=== PATIENT | male | born 1960 | race Hispanic/Latino ===

== ENCOUNTER 2021-04-07 14:05 | Inpatient (IN) | payer SELFPAY ==
[2021-04-07] MEDS ORDERED: ACETAMINOPHEN 325 MG TABLET ONE (14:45)
--- NOTE | 2021-04-07 15:16 | RAD REPORT ---
EXAM DESCRIPTION: CT - Head Brain Wo Cont - 04/07/2021 2:54 pm CLINICAL HISTORY: WEAKNESS, headache, right-sided numbness COMPARISON: No comparisons TECHNIQUE: Axial 5 mm thick images of the head were obtained without IV contrast. All CT scans are performed using dose optimization technique as appropriate and may include automated exposure control or mA/KV adjustment according to patient size. FINDINGS: No intracranial hemorrhage, mass, edema or shift of mid-line structures. No acute cortical based infarction identified. No cortical edema or sulcal effacement. Diminished attenuation in the r ight parietal white matter is probably old CVA. Ischemic change in this region would not generate rig ht-side extremity symptoms. Patient has areas of diminished attenuation in the each basal ganglia as well is in the left thalamus. Chronic ischemic changes are scattered in the cerebral white matter. At rophy changes are minimal. No abnormal extra-axial fluid collections. Ventricles are normal. Mastoid air cells and visualized portions of the paranasal sinuses are clear. No acute bony findings. IMPRESSION: No hemorrhage is identified. No mass or edema Multiple focal areas of diminished attenuation are present in the bilateral basal ganglia, left thala mus and right parietal white matter. These focal changes are superimposed on a mild diffuse chronic i schemic pattern. Acute nonhemorrhagic CVA changes could be masked in this setting. Follow-up MR imaging could be perfo rmed if there are ongoing concerns for acute ischemia.
[2021-04-07 15:39] LABS: Protime INR 1.15
[2021-04-07] MEDS ORDERED: ASPIRIN 81 MG CHEWABLE TABLET ONE (15:39)
[2021-04-07] MEDS ORDERED: NA CHLORIDE 0.9% 500 ML ONE (15:40)
[2021-04-07] MEDS ORDERED: LABETALOL 20 MG/4ML SYRINGE IV ONE (15:40)
[2021-04-07] MEDS ORDERED: NA CHLORIDE 0.9% 1,000 ML ONE (15:40)
[2021-04-07] MEDS ORDERED: AMLODIPINE 10 MG TAB ONE (15:40)
[2021-04-07] MEDS ORDERED: FOLIC ACID 5 MG/ML VIAL ONE (15:41)
[2021-04-07 15:47] LABS: Absolute Lymphocytes (CBC) 1.3 K/uL (0.7-4.9); Basophils % 1.1 % (0-1.3); Hematocrit 49.1 % (39.6-49.0); Lymphocytes % 23.8 % (15.3-44.8); MPV 10.4 fL (7.6-11.3); RBC Red Blood Cell Count 5.03 M/uL (4.33-5.43)
[2021-04-07 15:55] LABS: ALT/SGPT 27 U/L (12-78); AST/SGOT 22 U/L (15-37); Albumin 3.3 g/dL (3.4-5.0); Alkaline Phosphatase 112 U/L (45-117); BUN Blood Urea Nitrogen 13 mg/dL (7-18); Bicarbonate 25 mmol/L (21-32); Bilirubin Direct < 0.1 mg/dL (0-0.2); Bilirubin Total 0.3 mg/dL (0.2-1.0); Glucose Level 84 mg/dL (74-106); Magnesium 2.3 mg/dL (1.8-2.4); NT PRO-BNP 336 pg/mL (<125); Potassium 3.5 mmol/L (3.5-5.1); Protein, Total 7.7 g/dL (6.4-8.2); Sodium Level 139 mmol/L (136-145); Troponin (Emerg Dept Use Only) < 0.02 ng/mL (0.0-0.045)
--- NOTE | 2021-04-07 16:15 | EDPHYS ---
Physician Documentation [facility] Name: Nicolás Griffin Age: 60 yrs Sex: Male : 1960 Arrival Date: 04/07/2021 Time: 14:09 Bed 7 Private MD: ED Physician Shaw Girard HPI: 04/07 15:27 This 60 yrs old Male presents to ER via Wheelchair with complaints of rich Headache, Dizziness, Numbness - arm/face. 15:27 The patient complains of pain to the forehead. The patient describes the headache as rich aching. Onset: The symptoms/episode began/occurred 4 day(s) ago. Associated signs and symptoms: Pertinent positives: left face numbness, left arm numbness. Severity of symptoms: At its worst the pain was mild, in the emergency department the pain is unchanged. 15:28 The patient's problem is reported as paresthesias, in left upper extremity, in left rich side of face. Onset: The symptoms/episode began/occurred 3 day(s) ago. Duration: The episode is continuous. Context: the episode(s) was witnessed, by no one. The symptoms are alleviated by nothing. The symptoms are aggravated by nothing. Headache History: The patient has had previous headaches and this one is similar to previous episodes. Historical: - Allergies: 14:45 No Known Allergies; vg1 - Home Meds: 14:45 None [Active]; vg1 - PMHx: 14:45 Hypertensive disorder; vg1 - PSHx: 14:45 None; vg1 - Immunization history:: Client reports receiving the 1st dose of the Covid vaccine. - Social history:: Smoking status: Patient reports the use of cigarette tobacco products, smokes one pack cigarettes per day. - Family history:: not pertinent. ROS: 15:28 Constitutional: Negative for fever, chills, and weight loss, Eyes: Negative for injury, rich pain, redness, and discharge, ENT: Negative for injury, pain, and discharge, Neck: Negative for injury, pain, and swelling, Cardiovascular: Negative for chest pain, palpitations, and edema, Respiratory: Negative for shortness of breath, cough, wheezing, and pleuritic chest pain, Abdomen/GI: Negative for abdominal pain, nausea, vomiting, diarrhea, and constipation, Back: Negative for injury and pain, : Negative for injury, bleeding, discharge, and swelling, MS/Extremity: Negative for injury and deformity, Skin: Negative for injury, rash, and discoloration, Psych: Negative for depression, anxiety, suicide ideation, homicidal ideation, and hallucinations, Allergy/Immunology: Negative for hives, rash, and allergies, Endocrine: Negative for neck swelling, polydipsia, polyuria, polyphagia, and marked weight changes, Hematologic/Lymphatic: Negative for swollen nodes, abnormal bleeding, and unusual bruising. 15:28 Neuro: Positive for numbness left face and left arm. Exam: 15:28 Constitutional: This is a well developed, well nourished patient who is awake, alert, rich and in no acute distress. Head/Face: Normocephalic, atraumatic. Eyes: Pupils equal round and reactive to light, extra-ocular motions intact. Lids and lashes normal. Conjunctiva and sclera are non-icteric and not injected. Cornea within normal limits. Periorbital areas with no swelling, redness, or edema. ENT: Nares patent. No nasal discharge, no septal abnormalities noted. Tympanic membranes are normal and external auditory canals are clear. Oropharynx with no redness, swelling, or masses, exudates, or evidence of obstruction, uvula midline. Mucous membranes moist. Neck: Trachea midline, no thyromegaly or masses palpated, and no cervical lymphadenopathy. Supple, full range of motion without nuchal rigidity, or vertebral point tenderness. No Meningismus. Chest/axilla: Normal chest wall appearance and motion. Nontender with no deformity. No lesions are appreciated. Cardiovascular: Regular rate and rhythm with a normal S1 and S2. No gallops, murmurs, or rubs. Normal PMI, no JVD. No pulse deficits. Respiratory: Lungs have equal breath sounds bilaterally, clear to auscultation and percussion. No rales, rhonchi or wheezes noted. No increased work of breathing, no retractions or nasal flaring. Abdomen/GI: Soft, non-tender, with normal bowel sounds. No distension or tympany. No guarding or rebound. No evidence of tenderness throughout. Back: No spinal tenderness. No costovertebral tenderness. Full range of motion. Male : Normal genitalia with no discharge or lesions. Skin: Warm, dry with normal turgor. Normal color with no rashes, no lesions, and no evidence of cellulitis. MS/ Extremity: Pulses equal, no cyanosis. Neurovascular intact. Full, normal range of motion. Psych: Awake, alert, with orientation to person, place and time. Behavior, mood, and affect are within normal limits. 15:28 Neuro: Orientation: is normal, appropriate for stated age, no acute changes, Mentation: is normal, appropriate for stated age, no acute changes, Memory: is normal, appropriate for stated age, no acute changes, Cranial nerves: grossly normal, is grossly normal based on the patient's age, no acute changes, visual wooten are intact. Cerebellar function: is grossly normal, is grossly normal based on the patient's age, no acute changes, Motor: is normal, is grossly normal based on the patient's age, no acute changes, moves all fours, strength is normal, strength is 5/5 in all extremities, Gait: not tested. Babinski testing is normal, seizure activity, is not displayed by the patient. 15:31 Radiologist reports: ischemic changes [facility] 15:34 ECG was reviewed by the Attending Physician. [facility] Vital Signs: 14:41 BP 224 / 101; Pulse 74; Resp 18; Temp 98.3; Pulse Ox 97% ; Weight 80.74 kg; Height 5 vg1 ft. 9 in. (175.26 cm); Pain 4/10; 16:00 BP 252 / 130; Pulse 75; Resp 17; Pulse Ox 98% ; bp 17:00 BP 204 / 99; Pulse 61; Resp 17; Pulse Ox 96% ; bp 19:10 BP 162 / 89; Pulse 86; Resp 18; Pulse Ox 98% on R/A; lp1 20:30 BP 172 / 93; Pulse 79; Resp 18; Pulse Ox 96% on R/A; lp1 21:29 BP 162 / 89; Pulse 67; Resp 18; Pulse Ox 96% on R/A; lp1 23:06 BP 159 / 97; Pulse 68; Resp 18; Pulse Ox 97% on R/A; lp1 14:41 Body Mass Index 26.29 (80.74 kg, 175.26 cm) vg1 NIH Stroke Scale Scores: 15:28 NIHSS Score: 1 [facility] [place] Coma Score: 15:32 Eye Response: spontaneous(4). Verbal Response: oriented(5). Motor Response: obeys rich commands(6). Total: 15. MDM: 15:00 Patient medically screened. rich 15:32 Differential diagnosis: CVA, TIA, Dementia, metabolic disorder, hypertensive headache, rich migraine, tension headache. Data reviewed: vital signs, nurses notes, lab test result(s), EKG, radiologic studies, CT scan, doppler, plain films. Data interpreted: campus monitor: rate is 74 beats/min, rhythm is regular, Pulse oximetry: on room air is 97 %. Test interpretation: by ED physician or midlevel provider: ECG, plain radiologic studies. Counseling: I had a detailed discussion with the patient and/or guardian regarding: the historical points, exam findings, and any diagnostic results supporting the discharge/admit diagnosis, lab results, radiology results. 04/07 14:44 Order name: Basic Metabolic Panel; Complete Time: 16:09 bp 04/07 14:44 Order name: CBC with Diff bp 04/07 14:44 Order name: LFT's; Complete Time: 16:09 bp 04/07 14:44 Order name: Magnesium; Complete Time: 16:09 bp 04/07 14:44 Order name: NT PRO-BNP; Complete Time: 16:09 bp 04/07 14:44 Order name: PT-INR; Complete Time: 16:09 bp 04/07 14:44 Order name: Troponin (emerg Dept Use Only); Complete Time: 16:09 bp 04/07 14:44 Order name: XRAY Chest (1 view) bp 04/07 14:44 Order name: CT Head Brain wo Cont; Complete Time: 15:25 bp 04/07 15:26 Order name: US Carotid Artery Bilateral rich 04/07 16:16 Order name: COVID-19 SARS RT PCR (Document "Date of Onset" if Symptomatic) eb 04/07 17:20 Order name: Head angio EDMS 04/07 19:25 Order name: CBC Smear Scan EDMS 04/07 14:44 Order name: EKG; Complete Time: 14:44 bp 04/07 14:44 Order name: Cardiac monitoring; Complete Time: 17:14 bp 04/07 14:44 Order name: EKG - Nurse/Tech; Complete Time: 17:14 bp 04/07 14:44 Order name: IV Saline Lock; Complete Time: 17:14 bp 04/07 14:44 Order name: Labs collected and sent; Complete Time: 17:14 bp 04/07 14:44 Order name: O2 Per Protocol; Complete Time: 17:14 bp 04/07 14:44 Order name: O2 Sat Monitoring; Complete Time: 17:14 bp 04/07 17:15 Order name: CONS Physician Consult; Complete Time: 19:31 EDMS EC:34 Rate is 76 beats/min. Rhythm is regular. QRS [place] is Normal. MI interval is normal. QRS rich interval is normal. QT interval is normal. No Q waves. T waves are Normal. No ST changes noted. Clinical impression: NSR w/ Non-specific ST/T Changes and No evidence of ischemia. Interpreted by me. Reviewed by me. Administered Medications: 15:45 Drug: NS 0.9% 1000 ml Route: IV; Rate: 125 ml/hr; Site: right forearm; bp 19:01 Follow up: IV Status: Completed infusion; IV Intake: 500ml bp 15:51 Drug: foLIC Acid 1 mg Route: IVPB; Site: right forearm; as6 19:00 Follow up: IV Status: Completed infusion bp 15:52 Drug: NS 0.9% 500 ml Route: IV; Rate: bolus; Site: right forearm; as6 19:02 Follow up: IV Status: Completed infusion; IV Intake: 500ml bp 15:52 Drug: Aspirin Chewable Tablet 324 mg Route: PO; as6 19:01 Follow up: Response: No adverse reaction bp 15:52 Drug: Norvasc (amlodipine) 10 mg Route: PO; as6 19:01 Follow up: Response: No adverse reaction bp 15:52 Drug: Labetalol 10 mg Route: IVP; Infused Over: 2 mins; Site: right forearm; as6 19:01 Follow up: Response: No adverse reaction bp 16:30 Drug: PlaVIX (clopidogrel) 75 mg Route: PO; bp 18:53 Follow up: Response: No adverse reaction bp 16:30 Drug: Lipitor (atorvastatin) 40 mg Route: PO; bp 18:52 Follow up: Response: No adverse reaction bp Disposition Summary: 04/07/21 16:15 Hospitalization Ordered Hospitalization Status: Inpatient Admission rich Provider: Geovanny Bennett cha Location: Telemetry/MedSurg (Inpatient) rich Condition: Fair rich Problem: new rich Symptoms: have improved rich Bed/Room Type: Standard rich Room Assignment: 213(04/07/21 23:03) cg Diagnosis - Paresthesia of skin rich - Cerebral infarction, unspecified - subacute rich - Essential (primary) hypertension rich - Tobacco abuse counseling rich - Tobacco use rich Forms: - Medication Reconciliation Form rich - SBAR form rich NIH Stroke Scale - NIH Stroke Score Date: 04/07/2021 Time: 15:28 Total Score = 1 1a. Level of Consciousness (LOC) - 0(Alert) 1b. Level of Consciousness (LOC) (Month \\T\\ Age) - 0(Both) 1c. LOC Commands (Open \\T\\ Closes Eyes/Bleach Mixer) - 0(Both) 2. Best Gaze (Lateral Gaze Paresis) - 0(Normal) 3. Visual Field Loss - 0(No visual loss) 4. Facial Palsy - 0(Normal) 5a. Left Arm: Motor (10-second hold) - 0(No drift) 5b. Right Arm: Motor (10-second hold) - 0(No drift) 6a. Left Leg: Motor (5-second hold - always test supine) - 0(No drift) 6b. Right Leg: Motor (5-second hold - always test supine) - 0(No drift) 7. Limb Ataxia (finger/nose \\T\\ heel/hoff - test with eyes open) - 0(Absent) 8. Sensory Loss (pinprick arms/legs/face) - 1(Mild to moderate loss) 9. Best Language: Aphasia (description/naming/reading) - 0(No aphasia) 10. Dysarthria (speech clarity - read or repeat words) - 0(Normal) 11. Extinction and Inattention (visual/tactile/auditory/spatial/personal) - 0(No abnormality) Initials: rich Signatures: Dispatcher [employer] EDShaw Davila MD MD cha Garcia, Cindy RN RN César Mercado RN RN bp Garcia, Victoria, RN RN vg1 Jose Elizondo RN RN as6 Corrections: (The following items were deleted from the chart) 23:03 16:15 rich cg
--- NOTE | 2021-04-07 16:15 | ER ---
Nurse's Notes [facility] Name: Nicolás Griffin Age: 60 yrs Sex: Male : 1960 Arrival Date: 04/07/2021 Time: 14:09 Bed 7 Private MD: Diagnosis: Paresthesia of skin;Cerebral infarction, unspecified-subacute;Essential (primary) hypertension;Tobacco abuse counseling;Tobacco use Presentation: 04/07 14:41 Chief complaint: Patient states: For the past two weeks pt has had headaches and vg1 dizziness. States when a headache comes Left side of face and Left arm become numb. States is unable to walk straight and that asked him if he had been drinking alcohol bc of the way he was walking. Coronavirus screen: Vaccine status: Patient reports receiving the 1st dose of the Covid vaccine. Client denies travel out of the [place] in the last 14 days. Ebola Screen: Patient negative for fever greater than or equal to 101.5 degrees Fahrenheit, and additional compatible Ebola Virus Disease symptoms. Initial Sepsis Screen: Does the patient meet any 2 criteria? No. Patient's initial sepsis screen is negative. Does the patient have a suspected source of infection? No. Patient's initial sepsis screen is negative. Risk Assessment: Do you want to hurt yourself or someone else? Patient reports no desire to harm self or others. Onset of symptoms was March 24, 2021. 14:41 Method Of Arrival: Wheelchair vg1 14:41 Acuity: LALO 3 vg1 14:41 Chief complaint: Patient states: 2 WEEKS INTERMITTENT HTN WITH SCHILLING, LEFT SIDED FACIAL bp NUMBNESS, LUE WEAKNESS AND GAIT DISTURBANCE. Triage Assessment: 14:45 Headache History: The patient has had previous headaches and this one is different than vg1 previous episodes. General: Appears in no apparent distress. uncomfortable, Behavior is calm, cooperative. Pain: Complains of pain in head Pain currently is 4 out of 10 on a pain scale. Pain began Also complains of. Neuro: Level of Consciousness is awake, alert, obeys commands, Oriented to person, place, time, situation, Medical Records Analyst are equal bilaterally Moves all extremities. Gait is unsteady, Speech is normal, Facial symmetry appears normal. 14:45 Headache History: The patient has had previous headaches and this one is different than bp previous episodes, and this one is more severe than previous episodes. General: Appears in no apparent distress. uncomfortable, Behavior is cooperative, appropriate for age, anxious. Pain: Complains of pain in head. EENT: No deficits noted. Neuro: Level of Consciousness is awake, alert, obeys commands, Oriented to Appropriate for age Medical Records Analyst are weak on left Moves all extremities. Weakness in left arm(s) Gait is unsteady, Speech is normal, Facial symmetry appears normal, Pupils are PERRLA, Numbness in left arm. Cardiovascular: No deficits noted. Respiratory: No deficits noted. GI: No signs and/or symptoms were reported involving the gastrointestinal system. : No signs and/or symptoms were reported regarding the genitourinary system. Derm: No deficits noted. Musculoskeletal: Circulation, motion, and sensation intact. Range of motion: intact in all extremities. Historical: - Allergies: 14:45 No Known Allergies; vg1 - Home Meds: 14:45 None [Active]; vg1 - PMHx: 14:45 Hypertensive disorder; vg1 - PSHx: 14:45 None; vg1 - Immunization history:: Client reports receiving the 1st dose of the Covid vaccine. - Social history:: Smoking status: Patient reports the use of cigarette tobacco products, smokes one pack cigarettes per day. - Family history:: not pertinent. Screenin:45 Abuse screen: Denies threats or abuse. Denies injuries from another. Nutritional bp screening: No deficits noted. Tuberculosis screening: No symptoms or risk factors identified. Fall Risk None identified. Assessment: 14:45 General: SEE TRIAGE NOTE. bp 16:00 Reassessment: No changes from previously documented assessment. Patient and/or family bp updated on plan of care and expected duration. Pain level reassessed. 17:00 Reassessment: No changes from previously documented assessment. Patient and/or family bp updated on plan of care and expected duration. Pain level reassessed. ADMIT INITIATED. 19:30 Reassessment: Patient appears in no apparent distress at this time. Patient is alert, lp1 oriented x 3, equal unlabored respirations, skin warm/dry/pink. Patient given sandwich and water Patient states feeling better. 21:00 Reassessment: Patient appears in no apparent distress at this time. Patient and/or lp1 family updated on plan of care and expected duration. Pain level reassessed. Waiting for room assignment. Vital Signs: 14:41 BP 224 / 101; Pulse 74; Resp 18; Temp 98.3; Pulse Ox 97% ; Weight 80.74 kg; Height 5 vg1 ft. 9 in. (175.26 cm); Pain 4/10; 16:00 BP 252 / 130; Pulse 75; Resp 17; Pulse Ox 98% ; bp 17:00 BP 204 / 99; Pulse 61; Resp 17; Pulse Ox 96% ; bp 19:10 BP 162 / 89; Pulse 86; Resp 18; Pulse Ox 98% on R/A; lp1 20:30 BP 172 / 93; Pulse 79; Resp 18; Pulse Ox 96% on R/A; lp1 21:29 BP 162 / 89; Pulse 67; Resp 18; Pulse Ox 96% on R/A; lp1 23:06 BP 159 / 97; Pulse 68; Resp 18; Pulse Ox 97% on R/A; lp1 14:41 Body Mass Index 26.29 (80.74 kg, 175.26 cm) vg1 Jose Luis Coma Score: 15:32 Eye Response: spontaneous(4). Verbal Response: oriented(5). Motor Response: obeys rich commands(6). Total: 15. NIH Stroke Scale Scores: 15:28 NIHSS Score: 1 rich ED Course: 14:09 Patient arrived in ED. as 14:39 César Nolen, RN is Primary Nurse. bp 14:45 Triage completed. vg1 14:45 Arm band placed on. vg1 14:45 Patient has correct armband on for positive identification. Bed in low position. Call bp light in reach. Side rails up X2. 14:53 CT Head Brain wo Cont In Process Unspecified. EDMS 15:00 Shaw Girard MD is Attending Physician. rich 15:00 Inserted saline lock: 20 gauge in right forearm, using aseptic technique. Blood bp collected. 16:14 Geovanny Bennett MD is Hospitalizing Provider. rich 16:31 US Carotid Artery Bilateral Sent. bp 17:00 XRAY Chest (1 view) In Process Unspecified. EDMS 17:24 US Carotid Artery Bilateral In Process Unspecified. EDMS 19:30 No provider procedures requiring assistance completed. Patient admitted, IV remains in lp1 place. Administered Medications: 15:45 Drug: NS 0.9% 1000 ml Route: IV; Rate: 125 ml/hr; Site: right forearm; bp 19:01 Follow up: IV Status: Completed infusion; IV Intake: 500ml bp 15:51 Drug: foLIC Acid 1 mg Route: IVPB; Site: right forearm; as6 19:00 Follow up: IV Status: Completed infusion bp 15:52 Drug: NS 0.9% 500 ml Route: IV; Rate: bolus; Site: right forearm; as6 19:02 Follow up: IV Status: Completed infusion; IV Intake: 500ml bp 15:52 Drug: Aspirin Chewable Tablet 324 mg Route: PO; as6 19:01 Follow up: Response: No adverse reaction bp 15:52 Drug: Norvasc (amlodipine) 10 mg Route: PO; as6 19:01 Follow up: Response: No adverse reaction bp 15:52 Drug: Labetalol 10 mg Route: IVP; Infused Over: 2 mins; Site: right forearm; as6 19:01 Follow up: Response: No adverse reaction bp 16:30 Drug: PlaVIX (clopidogrel) 75 mg Route: PO; bp 18:53 Follow up: Response: No adverse reaction bp 16:30 Drug: Lipitor (atorvastatin) 40 mg Route: PO; bp 18:52 Follow up: Response: No adverse reaction bp Intake: 19:01 IV: 500ml; Total: 500ml. bp 19:02 IV: 500ml; Total: 1000ml. bp Outcome: 16:15 Decision to Hospitalize by Provider. rich 19:31 Condition: stable lp1 19:31 Instructed on the need for admit. 23:32 Admitted to Med/surg room 213, with chart, Report called to KELTON Ball lp1 04/08 00:02 Patient left the ED. mw2 NIH Stroke Scale - NIH Stroke Score Date: 04/07/2021 Time: 15:28 Total Score = 1 1a. Level of Consciousness (LOC) - 0(Alert) 1b. Level of Consciousness (LOC) (Month \T\ Age) - 0(Both) 1c. LOC Commands (Open \T\ Closes Eyes/Mining Captain) - 0(Both) 2. Best Gaze (Lateral Gaze Paresis) - 0(Normal) 3. Visual Field Loss - 0(No visual loss) 4. Facial Palsy - 0(Normal) 5a. Left Arm: Motor (10-second hold) - 0(No drift) 5b. Right Arm: Motor (10-second hold) - 0(No drift) 6a. Left Leg: Motor (5-second hold - always test supine) - 0(No drift) 6b. Right Leg: Motor (5-second hold - always test supine) - 0(No drift) 7. Limb Ataxia (finger/nose \T\ heel/hoff - test with eyes open) - 0(Absent) 8. Sensory Loss (pinprick arms/legs/face) - 1(Mild to moderate loss) 9. Best Language: Aphasia (description/naming/reading) - 0(No aphasia) 10. Dysarthria (speech clarity - read or repeat words) - 0(Normal) 11. Extinction and Inattention (visual/tactile/auditory/spatial/personal) - 0(No abnormality) Initials: rich Signatures: Dispatcher [employer] Shaw Mobley MD MD cha Martinez, Amelia as Pena, Laura, RN RN lp1 César Nolen RN RN bp Dharmesh Anderson mw2 Shanique Pedersen, RN RN vg1 Jose Elizondo, RN RN as6 Corrections: (The following items were deleted from the chart) 04/07 14:52 14:45 Patient has correct armband on for positive identification. Bed in low bp position. Call light in reach. Side rails up X2. Adult w/ patient. bp
[2021-04-07] MEDS ORDERED: CLOPIDOGREL 75 MG TABLET ONE (16:49)
[2021-04-07] MEDS ORDERED: ATORVASTATIN 20 MG TAB ONE (16:49)
--- NOTE | 2021-04-07 17:14 | RAD REPORT ---
EXAM DESCRIPTION: RAD - Chest Single View - 04/07/2021 5:00 pm CLINICAL HISTORY: HEADACHE, cough, shortness of breath COMPARISON: None TECHNIQUE: AP portable chest image was obtained 04/07/2021 5:00 pm . FINDINGS: No focal lung parenchymal process seen. Acute failure or volume overload are not suspected . Heart and vasculature are normal. No measurable pleural effusion and no pneumothorax. Spinal rods a re in place in the lower thoracic spine. There are advanced degenerative changes in the midthoracic s pine with prominent bony hypertrophy. These are only partially imaged on this study. No acute aortic findings suspected. IMPRESSION: No acute cardiopulmonary process. Advanced midthoracic spine degenerative change only partially evaluated on portable imaging.
--- NOTE | 2021-04-07 17:30 | P.HP ---
Certification for Inpatient Patient admitted to: Inpatient With expected LOS: >2 Midnights Practitioner: I am a practitioner with admitting privileges, knowledge of patient current condition, hospital course, and medical plan of care. Services: Services provided to patient in accordance with Admission requirements found in Title 42 Section 412.3 of the Code of Federal Regulations Patient History Date of Service: 04/07/21 Reason for admission: CVA, HTN Emergency History of Present Illness: 60-year-old male, PMH: Hypertension Presents to the ED with 2 weeks of of intermittent left hand numbness and weakness. Patient states this began with hand numbness, then had 1 episode of left cheek numbness about 1 week ago. This self resolved. Over the last week he has had progressively worsening dizziness and unsteady gait. He has not seen a physician in many years. He has a history of hypertension and has not been taking medication for at least 1 month. No prior stroke history. Denies h/o blood clots. In the ED, noted to have hand weakness and numbness, hypertensive. CT revealed multiple small areas of prior infarction. Patient was blood pressure was noted to be significantly elevated and improved after labetalol in the ER. Patient denies any recent illness, no fever/chills, no diarrhea, no urinary or bowel incontinence. ED physician consulted neurology, recommended admission to the hospital for further evaluation and management. - Past Medical/Surgical History -: Hypertension Past Surgical History: Patient denies surgical history - Family History Father -: Heart disease Brother -: Heart disease - Social History Smoking Status: Current every day smoker (1 pack/day, [id number]) Alcohol use: Yes Place of Residence: Home Review of Systems 10-point ROS is otherwise unremarkable Physical Examination - Physical Exam General: Alert, In no apparent distress, Oriented x3 HEENT: PERRLA, Mucous membr. moist/pink, EOMI, Sclerae nonicteric Neck: Supple Respiratory: Clear to auscultation bilaterally, Normal air movement Cardiovascular: No edema, Regular rate/rhythm, No murmurs Capillary refill: <2 Seconds Gastrointestinal: Soft and benign, Non-distended, No tenderness Musculoskeletal: No erythema, No tenderness Integumentary: No rashes, No significant lesion Neurological: Normal speech, Normal strength at 5/5 x4 extr, Cranial nerves 3-12 intact, Normal affect - Studies Laboratory Data (last 24 hrs) 11/13/21 15:07: PT 13.3 H, INR 1.15 04/07/21 15:07: WBC 5.50, Hgb 16.8, Hct 49.1 H, Plt Count 137 L 04/07/21 15:07: Sodium 139, Potassium 3.5, BUN 13, Creatinine 1.23, Glucose 84, Magnesium 2.3, Total Bilirubin 0.3, AST 22, ALT 27, Alkaline Phosphatase 112 Assessment and Plan - Advance Directives Does patient have a Living Will: No Does patient have a Durable POA for Healthcare: No Physician Review Additional Text: Problem list Subacute CVA Hypertensive emergency History of hypertension -CT with multiple small foci of ischemic events. No acute findings Patient symptoms of been ongoing for 2 weeks. And lately has been having more intermittent symptoms that correlate with severe headaches In the ED is noted to have significantly elevated blood pressure, concern for hypertensive emergency, and likely uncontrolled hypertension led to his recent strokes Neurology consulted Aspirin, Plavix, statin, folic acid ordered PT ordered CTA, carotid ultrasound, echocardiogram ordered Patient's blood pressure improved in the ED with labetalol, but remains significantly elevated. Unclear if patient had any new infarcts, unable to obtain MRI today. Will allow for some permissive hypertension Code: full Dispo: ICU for BP monitoring, may need drip if remains significantly elevated Time Spent Managing Pts Care (In Minutes): 60
--- NOTE | 2021-04-07 17:33 | RAD REPORT ---
EXAM DESCRIPTION: US - CP - 04/07/2021 5:23 pm CLINICAL HISTORY: Dizziness;TIA COMPARISON: Head Brain Wo Cont dated 04/07/2021 TECHNIQUE: Real-time sonographic evaluation of bilateral carotid and vertebral systems was performed . Flower scale and Doppler interrogation were performed with waveform tracing bilaterally. FINDINGS: Normal high resistance waveforms are noted in both external carotid arteries. The common c arotid arteries and internal carotid arteries show normal low resistance waveforms. Calcified plaquing seen in each carotid bulb. Visually this does not cause significant luminal narrow ing. Peak systolic velocity values of each internal carotid artery are elevated relative to the CCA v alues. Much of this is due to technical factors, particularly the left ICA tortuosity. Visually the a reas of elevated velocity show no significant atherosclerotic change. Antegrade flow seen in both vertebral arteries. Velocity values and ratios were recorded and are retained in the patient's imaging records. IMPRESSION: On visual inspection atherosclerotic changes are relatively mild. ICA velocities are robert vated in the ICA/CCA ratios are elevated. Velocity and ratio elevations are believed be mostly technical in nature. True hemodynamically signif icant stenosis is felt to be unlikely. As clinical findings warrant, follow-up outpatient MR angiogra phy or contrast CT angiography could be performed for further assessment.
--- NOTE | 2021-04-07 17:51 | RAD REPORT ---
EXAM DESCRIPTION: CT - Head angio - 04/07/2021 5:38 pm CLINICAL HISTORY: stroke, L facial numbness, L hand numbness, dizzy TECHNIQUE: During dynamic enhancement using nonionic IV contrast, axial 1 millimeter thick images of the head were obtained. Sagittal and axial reconstruction images were generated using MIP technique and reviewed. All CT scans are performed using dose optimization technique as appropriate and may include automated exposure control or mA/KV adjustment according to patient size. COMPARISON: CT head same date FINDINGS: No aneurysm or vascular malformation identified. Major venous sinuses are patent. Atherosclerotic changes involve the basilar artery with estimated 50% stenosis. Distal right vertebra l dense calcifications are present. Right vertebral artery is dominant. The much smaller left vertebr al artery appears to terminate at the posteroinferior cerebellar artery as a normal anatomic variant. Atherosclerotic changes are present in the right posterior cerebral artery P2 segment estimated at 5 0%. FLAT LOCK OPERATOR distributions are otherwise without significant identifiable disease. Distal internal carotid arteries show dense calcifications without significant distal ICA luminal reema rowing. Anterior communicating artery is present. The left A1 RAJENDRA segment is very small is a normal v ariant. Bilateral MCA atherosclerotic changes are present do not appear to result in significant degr ees of luminal narrowing. IMPRESSION: Posterior circulation atherosclerotic changes cause significant stenosis in the basilar artery and in the right FLAT LOCK OPERATOR P2 segment. Anterior circulation atherosclerotic changes are present but do not appear to cause significant degre es of luminal narrowing.
[2021-04-07 19:24] LABS: Blood Morphology Comment NOT SEEN (NOT SEEN); Platelet Estimate DECR; White Blood Cell Scan OK (OK)
[2021-04-07] MEDS ORDERED: ONDANSETRON 4 MG/2 ML VIAL IV PRN (23:27)
[2021-04-07] MEDS ORDERED: HYDRALAZINE HCL 20 MG/ML VIAL IV PRN (23:27)
[2021-04-07] MEDS: ATORVASTATIN 40 MG TAB PO SCH (23:27)
[2021-04-08 00:14] VITALS: BMI 25.6
[2021-04-08] MEDS: ACETAMINOPHEN 325 MG TABLET PO PRN ×2 (02:45→11:16)
[2021-04-08 05:36] LABS: Absolute Lymphocytes (CBC) 1.1 K/uL (0.7-4.9); Basophils % 0.9 % (0-1.3); Hematocrit 47.6 % (39.6-49.0); Lymphocytes % 18.9 % (15.3-44.8); RBC Red Blood Cell Count 4.87 M/uL (4.33-5.43)
[2021-04-08 05:51] LABS: Albumin 3.1 g/dL (3.4-5.0); Bilirubin Total 0.4 mg/dL (0.2-1.0); Magnesium 2.2 mg/dL (1.8-2.4); Potassium 3.4 mmol/L (3.5-5.1)
--- NOTE | 2021-04-08 05:56 | P.PN ---
Date of Service: 04/08/21 Subjective: Feeling better this morning, no dizziness, no numbness/tingling, no weakness. Reports he is still having intermittent headaches, otherwise no new symptoms ROS: 10 point ROS as noted above, otherwise negative Physical Exam General: Alert, In no apparent distress, Oriented x3 HEENT: Mucous membr. moist/pink, EOMI, Sclerae nonicteric Respiratory: Clear to auscultation bilaterally, Normal air movement Cardiovascular: No edema, Regular rate/rhythm, No murmurs Gastrointestinal: Soft and benign, Non-distended, No tenderness Musculoskeletal: No erythema, No tenderness Integumentary: No rashes, No significant lesion Neurological: Normal speech, Normal strength at 5/5 x4 extr, Cranial nerves 3-12 intact, Normal affect Problem list Subacute CVA, on chronic multifocal ischemic areas Hypertensive emergency History of hypertension CT with multiple small foci of ischemic events. subacute on chronic Patient symptoms have been ongoing for 2 weeks. And lately has been having more intermittent symptoms that correlate with severe headaches In the ED is noted to have significantly elevated blood pressure, concern for hypertensive emergency, and likely uncontrolled hypertension led to his recent strokes Neurology consulted Aspirin, Plavix, statin, folic acid PT ordered CTA, carotid ultrasound, echo, MRI ordered CTA: 50% stenosis of basilar artery, and right PROJECT ESTIMATOR (P2) segment. Which do correlate with some of his ischemic findings Patient states he was told in the past that he had a "vein" in his neck that "was partially blocked or something wrong with it" but he only needed medication to treat it and it was minor. ~ 5 years ago Will further discuss with neuro today Patient's blood pressure improved in the ED with labetalol Patient's blood pressure remains tolerable, as needed medication if gets above 190. Once allowed for some permissive hypertension in the next few days, ideally 150-170 systolic Code: full Dispo: anticipate dc home in 24-48hrs, pending further eval Time Spent Managing Pts Care (In Minutes): 35
[2021-04-08] MEDS: CLOPIDOGREL 75 MG TABLET PO SCH (08:49)
[2021-04-08] MEDS: ASPIRIN EC 81 MG TAB PO SCH (08:49)
[2021-04-08] MEDS: FOLIC ACID 1 MG TABLET PO SCH (08:50)
[2021-04-08] MEDS: lisinopriL 10 MG TAB PO SCH (08:50)
[2021-04-08] MEDS ORDERED: POTASSIUM CL SA 10 MEQ TAB PO ONE ×2 (09:00→15:53)
[2021-04-08] MEDS: ATORVASTATIN 40 MG TAB PO SCH (20:36)
[2021-04-08] MEDS: BENZONATATE 100 MG CAP PO PRN (22:08)
[2021-04-09 04:10] LABS: Potassium 3.6 mmol/L (3.5-5.1)
[2021-04-09] MEDS: BENZONATATE 100 MG CAP PO PRN (06:10)
--- NOTE | 2021-04-09 08:28 | RAD REPORT ---
EXAM DESCRIPTION: MRI - MRA Head Wo Cont - 04/09/2021 8:10 am CLINICAL HISTORY: possible stroke CVA COMPARISON: Head angio dated 04/07/2021 FINDINGS: 3D noncontrast [id number] MR angiography of the [place] was performed. Short-segment occlusion of the right P2 segment of the posterior cerebral artery with distal reconsti tution. High-grade stenosis of the right M2 segment of the middle cerebral artery. Absent versus occl uded left vertebral artery. This is probably an anatomic variant of the left vertebral artery termina ting in a branch of the PICA. The visualized dural venous sinuses appear patent. IMPRESSION: By MRI, the right P2 segment of the posterior cerebral artery appears occluded. On the C TA from 04/07/2021, the appears to be a critical stenosis but not occlusion at this location. There i s also a high-grade stenosis at the right M2 segment of the middle cerebral artery.
--- NOTE | 2021-04-09 08:48 | RAD REPORT ---
EXAM DESCRIPTION: MRI - Brain Wo Cont - 04/09/2021 8:32 am CLINICAL HISTORY: possible stroke COMPARISON: MRA Head Wo Cont dated 04/09/2021; Head angio dated 04/07/2021; Head Brain Wo Cont dated 04/07/2021 TECHNIQUE: Sagittal T1-weighted images were obtained along with PD/heavily T2-weighted and T2-FLAIR images. Axial DWI and ADC mapping sequences were also obtained along with coronal heavily T2-weighted images were obtained. FINDINGS: Scattered punctate acute cortical subcortical infarcts in the right occipital lobe as well as small acute cortical infarct in the right parietal lobe. Chronic small vessel ischemic changes. S equela of remote bilateral basal ganglia lacunar infarcts. There is no edema or shift of midline stru ctures. No extra-axial fluid collections. Paranasal sinus thickening. Mucous retention cysts in the maxillary sinuses. IMPRESSION: Acute right parietal and occipital lobe infarcts. The overall volume of infarcts is smal l
[2021-04-09 08:52] VITALS: TEMP 97.8
[2021-04-09] MEDS ORDERED: POTASSIUM 25 MEQ EFFERV TAB PO ONE (09:00)
[2021-04-09] MEDS: ASPIRIN EC 81 MG TAB PO SCH (09:01)
[2021-04-09] MEDS: lisinopriL 10 MG TAB PO SCH (09:01)
[2021-04-09] MEDS: CLOPIDOGREL 75 MG TABLET PO SCH (09:01)
[2021-04-09] MEDS: FOLIC ACID 1 MG TABLET PO SCH (09:01)
[2021-04-09 09:02] VITALS: BP 173/93
[2021-04-09 09:16] VITALS: O2SAT 97
--- NOTE | 2021-04-09 10:14 | P.DS ---
Admission Date: 04/07/21 Discharge Date: 04/09/21 Disposition: ROUTINE DISCHARGE Discharge Condition: GOOD Reason for Admission: CVA, HTN Emergency Consultations: Neurology - Dr. Knight Procedures: CXR (04/07): IMPRESSION: No acute cardiopulmonary process. Advanced midthoracic spine degenerative change only partially evaluated on portable imaging. CT head (04/07): IMPRESSION: No hemorrhage is identified. No mass or edema Multiple focal areas of diminished attenuation are present in the bilateral basal ganglia, left thalamus and right parietal white matter. These focal changes are superimposed on a mild diffuse chronic ischemic pattern. Acute nonhemorrhagic CVA changes could be masked in this setting. Follow-up MR imaging could be performed if there are ongoing concerns for acute ischemia. CTA head (04/07): FINDINGS: No aneurysm or vascular malformation identified. Major venous sinuses are patent. Atherosclerotic changes involve the basilar artery with estimated 50% stenosis. Distal right vertebral dense calcifications are present. Right vertebral artery is dominant. The much smaller left vertebral artery appears to terminate at the posteroinferior cerebellar artery as a normal anatomic variant. Atherosclerotic changes are present in the right posterior cerebral artery P2 segment estimated at 50%. RELIGION PROFESSOR distributions are otherwise without significant identifiable disease. Distal internal carotid arteries show dense calcifications without significant distal ICA luminal narrowing. Anterior communicating artery is present. The left A1 RAJENDRA segment is very small is a normal variant. Bilateral MCA atherosclerotic changes are present do not appear to result in significant degrees of luminal narrowing. IMPRESSION: Posterior circulation atherosclerotic changes cause significant stenosis in the basilar artery and in the right RELIGION PROFESSOR P2 segment. Anterior circulation atherosclerotic changes are present but do not appear to cause significant degrees of luminal narrowing. Carotid artery ultrasound (04/07): IMPRESSION: On visual inspection atherosclerotic changes are relatively mild. ICA velocities are elevated in the ICA/CCA ratios are elevated. Velocity and ratio elevations are believed be mostly technical in nature. True hemodynamically significant stenosis is felt to be unlikely. As clinical findings warrant, follow-up outpatient MR angiography or contrast CT angiography could be performed for further assessment. MRI brain (04/09): FINDINGS: Scattered punctate acute cortical subcortical infarcts in the right occipital lobe as well as small acute cortical infarct in the right parietal lobe. Chronic small vessel ischemic changes. Sequela of remote bilateral basal ganglia lacunar infarcts. There is no edema or shift of midline structures. No extra-axial fluid collections. Paranasal sinus thickening. Mucous retention cysts in the maxillary sinuses. IMPRESSION: Acute right parietal and occipital lobe infarcts. The overall volume of infarcts is small MRA brain (04/09): FINDINGS: 3D noncontrast [id number] MR angiography of the [place] was performed. Short-segment occlusion of the right P2 segment of the posterior cerebral artery with distal reconstitution. High-grade stenosis of the right M2 segment of the middle cerebral artery. Absent versus occluded left vertebral artery. This is probably an anatomic variant of the left vertebral artery terminating in a branch of the PICA. The visualized dural venous sinuses appear patent. IMPRESSION: By MRI, the right P2 segment of the posterior cerebral artery appears occluded. On the CTA from 04/07/2021, the appears to be a critical stenosis but not occlusion at this location. There is also a high-grade stenosis at the right M2 segment of the middle cerebral artery. 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 Patient states this began with hand numbness, then had 1 episode of left cheek numbness about 1 week ago. This self resolved. Over the last week he has had progressively worsening dizziness and unsteady gait. He has not seen a physician in many years. He has a history of hypertension and has not been taking medication for at least 1 month. No prior stroke history. Denies h/o blood clots. In the ED, noted to have hand weakness and numbness, hypertensive. CT revealed multiple small areas of prior infarction. Patient was blood pressure was noted to be significantly elevated and improved after labetalol in the ER. Patient denies any recent illness, no fever/chills, no diarrhea, no urinary or bowel incontinence. ED physician consulted neurology, recommended admission to the hospital for further evaluation and management. Hospital Course: Patient was started on aspirin, Plavix, high-intensity statin, and folic acid. CTA head revealed significant stenosis of basilar artery (~50%). MRI and MRA revealed acute/subacute CVA and occlusion and high-grade stenosis of the intracranial subsegmental arteries. Neurology was consulted, and recommended to continue with medical management. Patient may benefit from a four-vessel angiogram for further evaluation and possible neurologic procedure in the near future. This cannot be done in the acute setting following CVA. Patient was evaluated by physical therapy and did well. Patient did not require any PT services. He was feeling back to his usual self, but did report some slight dizziness when he got up quickly from a lying position. Otherwise he did not have any numbness/tingling, no unsteady gait. He was counseled extensively on the importance of tobacco cessation. He was discharged home with prescriptions for aspirin, Plavix, atorvastatin, folic acid His blood pressure was maintained the systolics of [id number], allowing for permissive hypertension in setting of the acute CVA and high-grade stenosis of the subsegmental artery. He is discharged to continue with a stepwise approach of increasing his blood pressure medications slowly over the next several days. This was explained to the patient and his . They both expressed understanding and agreement with the plan. He is to follow-up with his PCP within 1 week. Follow-up with neurology in 1 month Vital Signs/Physical Exam: Temp Pulse Resp BP Pulse Ox 97.8 F 67 17 173/93 H 98 04/09/21 08:00 04/09/21 09:02 04/09/21 08:00 04/09/21 09:02 04/09/21 08:00 General: Alert, In no apparent distress, Oriented x3 HEENT: PERRLA, Mucous membr. moist/pink, EOMI, Sclerae nonicteric Neck: No LAD Respiratory: Clear to auscultation bilaterally, Normal air movement Cardiovascular: No edema, Regular rate/rhythm, No murmurs Gastrointestinal: Soft and benign, Non-distended, No tenderness Musculoskeletal: No erythema, No tenderness Integumentary: No significant lesion Neurological: Normal gait, Normal speech, Normal strength at 5/5 x4 extr, Sensation intact, Cranial nerves 3-12 intact, Normal affect Laboratory Data at Discharge: WBC 5.90 K/uL (4.3-10.9) 04/08/21 05:14 Hgb 16.4 g/dL (13.6-17.9) 04/08/21 05:14 Hct 47.6 % (39.6-49.0) 04/08/21 05:14 Plt Count 140 K/uL (152-406) L 04/08/21 05:14 PT 13.3 SECONDS (9.5-12.5) H 04/07/21 15:07 INR 1.15 04/07/21 15:07 Sodium 141 mmol/L (136-145) 04/09/21 03:27 Potassium 3.6 mmol/L (3.5-5.1) 04/09/21 03:27 BUN 13 mg/dL (7-18) 04/09/21 03:27 Creatinine 1.20 mg/dL (0.55-1.3) 04/09/21 03:27 Glucose 124 mg/dL (74-106) H 04/09/21 03:27 Phosphorus 3.0 mg/dL (2.5-4.9) 04/08/21 05:14 Magnesium 2.2 mg/dL (1.8-2.4) 04/08/21 05:14 Total Bilirubin 0.4 mg/dL (0.2-1.0) 04/08/21 05:14 AST 21 U/L (15-37) 04/08/21 05:14 ALT 31 U/L (12-78) 04/08/21 05:14 Alkaline Phosphatase 95 U/L (45-117) 04/08/21 05:14 Triglycerides 103 mg/dL (<150) 04/08/21 05:14 Cholesterol 206 mg/dL (<200) H 04/08/21 05:14 HDL Cholesterol 59 mg/dL (40-60) 04/08/21 05:14 Cholesterol/HDL Ratio 3.49 04/08/21 05:14 Home Medications: Aspirin [Aspirin EC] 81 mg PO DAILY 30 Days #30 tablet. 04/09/21 Atorvastatin Calcium [Lipitor] 40 mg PO BEDTIME 30 Days #30 tab 04/09/21 Clopidogrel Bisulfate [Plavix*] 75 mg PO DAILY 30 Days #30 tablet 04/09/21 Folic Acid 1 mg PO DAILY 30 Days #30 tablet 04/09/21 Lisinopril [Zestril] 20 mg PO SEECOM 30 Days #60 tablet 04/09/21 New Medications: Aspirin [Aspirin EC] 81 mg PO DAILY 30 Days #30 tablet. Folic Acid 1 mg PO DAILY 30 Days #30 tablet Atorvastatin Calcium [Lipitor] 40 mg PO BEDTIME 30 Days #30 tab Clopidogrel Bisulfate [Plavix*] 75 mg PO DAILY 30 Days #30 tablet Lisinopril [Zestril] 20 mg PO SEECOM 30 Days #60 tablet Physician Discharge Instructions: You were found to have new small strokes in your right parietal and occipital lobe. This is the cause of your symptoms. You were also found to have occlusion of a small artery (P2 segment of posterior cerebral artery) and high grade stenosis/narrowing of another small artery (M2 segment of middle cerebral artery). These arteries supply blood to the areas where your strokes were found. This is treated with medication management. You will need to follow up with Neurology in ~1 month. There may be a further imaging studies to do as an outpatient to evaluate if any other procedure could be done in a few months. You are also noted to have severe/uncontrolled high blood pressure. You need to slowly decrease your blood pressure over the next 1-2 weeks. For the next 5 days, goal blood pressure is [id number] systolic (top number). Afterwards, slowly decreasing your blood pressure over the following week, with goal of 140s on the top number. Please check your blood pressure at home, keep a diary of the results. Take this blood pressure diary with you when you follow-up with your primary care doctor. Recommend follow-up with your primary care doctor within 1 week to follow-up on your blood pressure, change medications for your blood pressure if needed. You need to stop smoking, this is a high risk factor for your arteries to get worse and for you to have more/worse strokes. You are prescribed aspirin 81 mg daily Plavix (clopidogrel) 75 mg daily Atorvastatin 40 mg at bedtime Lisinopril - 20mg once a day for 5 days, then twice a day Folic acid daily Diet: AHA Activity: Ad prakash Followup: Chavo Knight MD [ASSOCIATE-ACTIVE - CAN ADMIT] - (neurologist- follow up in 1 month, call to schedule an appointment ) NONE,NONE [Primary Care Provider] - Time spent managing pt's care (in minutes): 45
--- NOTE | 2021-04-10 07:10 | ECHO ---
HEIGHT: 5 ft 9 in WEIGHT: 173 lb 9.6 oz DATE OF STUDY: 04/09/[address]: Geovanny Bennett MD 2-DIMENSIONAL: YES M.MODE: YES DOPPLER: YES COLOR FLOW: YES TDS: YES PORTABLE: DEFINITY: BUBBLE STUDY: DIAGNOSIS: STROKE CARDIAC HISTORY: CATHERIZATION: SURGERY: PROSTHETIC VALVE: PACEMAKER: MEASUREMENTS (cm) DIASTOLIC (NORMALS) SYSTOLIC (NORMALS) IVSd 1.3 (0.6-1.2) LA Diam 4.4 (1.9-4.0) LVEF 60-65% LVIDd 4.4 (3.5-5.7) LVIDs 2.5 (2.0-3.5) %FS 43% LVPWd 1.2 (0.6-1.2) Ao Diam 2.5 (2.0-3.7) 2 DIMENSIONAL ASSESSMENT: RIGHT ATRIUM: NORMAL LEFT ATRIUM: NORMAL RIGHT VENTRICLE: NORMAL LEFT VENTRICLE: NORMAL TRICUSPID VALVE: NORMAL MITRAL VALVE: NORMAL PULMONIC VALVE: NORMAL AORTIC VALVE: NORMAL PERICARDIAL EFFUSION: NONE AORTIC ROOT: NORMAL LEFT VENTRICULAR WALL MOTION: NORMAL DOPPLER/COLOR FLOW: NORMAL COMMENTS: NORMAL LEFT VENTRICULAR EJECTION FRACTION 60-65%. NORMAL WALL MOTION. TECHNOLOGIST: LEONEL NESBITT
== END 2021-04-09 11:48 | disposition home or self-care (01) | DRG 65 ==
LOC: ER 14:05 → ERHOLD 17:13 → 2ND 23:33
PROVIDERS: ADMIT Hospitalist; ATTEND Hospitalist
DX: I63.9 Cerebral infarction, unspecified (principal); I16.1 Hypertensive emergency; I65.1 Occlusion and stenosis of basilar artery; I10 Essential (primary) hypertension; F17.210 Nicotine dependence, cigarettes, uncomplicated; I66.01 Occlusion and stenosis of right middle cerebral artery; R20.2 Paresthesia of skin; R29.701 NIHSS score 1; Z79.02 Long term (current) use of antithrombotics/antiplatelets; Z79.899 Other long term (current) drug therapy; Z79.82 Long term (current) use of aspirin; Z20.822 Contact with and (suspected) exposure to COVID-19
CPT/HCPCS: 36415; 70450; 70496; 70544; 70551; 71045; 80048; 80053; 80061; 80076; 83036; 83735; 83880; 84100; 84132; 84484; 85025; 85610; 93005; 93306; 93880; 94760; 96365; 96366; 96375; 97161; 99285; J0360; J7030; J7040; Q9967; U0003

== ENCOUNTER 2021-04-24 12:27 | Emergency (ER) | payer SELFPAY ==
[2021-04-24 13:13] LABS: Urine Blood Trace-intact (Negative); Urine Glucose Trace (Negative); Urine Protein 2+ (Negative); Urine Specific Gravity >=1.030 (1.005-1.030)
--- NOTE | 2021-04-24 13:19 | RAD REPORT ---
EXAM DESCRIPTION: CT - Head Brain Wo Cont - 04/24/2021 1:10 pm CLINICAL HISTORY: DIZZINESS, stroke-like symptoms, history of CVA around April 09 timeline COMPARISON: Head angio dated 04/07/2021; Brain Wo Cont dated 04/09/2021; Head Brain Wo Cont dated TECHNIQUE: Axial 5 mm thick images of the head were obtained without IV contrast. All CT scans are performed using dose optimization technique as appropriate and may include automated exposure control or mA/KV adjustment according to patient size. FINDINGS: No intracranial hemorrhage, mass, edema or shift of mid-line structures. No acute cortical based infarction identified. No cortical edema or sulcal effacement. Right parietal and occipital vo lume loss changes are present at the areas of infarction seen on the April 09 study. Decreased att enuation is seen in the bilateral cerebral white matter, thalamus and basal ganglia tissues. No signi ficant brainstem finding identified. The chronic ischemic pattern matches the advanced for age chroni c pattern seen April 09. Ventricles are in proportion to volume loss. No abnormal extra-axial flui d collections. Mastoid air cells are clear. Mucosal thickening present in the right maxillary sinus. A very minimal air-fluid level present in the left maxillary sinus. No acute bony findings. IMPRESSION: No intracranial hemorrhage is present and no acute cortical based infarction identified. Patient has advanced for age chronic ischemic change throughout the cerebral hemisphere white matter, basal ganglia and thalamus tissues. There is further encephalomalacia focally at the areas of infar ction seen April 09. Chronic ischemic changes can mask nonhemorrhagic acute infarction. MR brain followup can be obtained if there is ongoing concern for acute ischemia.
[2021-04-24] MEDS ORDERED: AMLODIPINE 10 MG TAB ONE (13:23)
[2021-04-24 13:27] LABS: Absolute Lymphocytes (CBC) 1.7 K/uL (0.7-4.9); Basophils % 0.9 % (0-1.3); Hematocrit 46.8 % (39.6-49.0); Lymphocytes % 22.8 % (15.3-44.8); MPV 10.3 fL (7.6-11.3)
[2021-04-24 13:31] LABS: Protime INR 1.16
[2021-04-24 13:50] LABS: ALT/SGPT 65 U/L (12-78); AST/SGOT 33 U/L (15-37); Albumin 3.3 g/dL (3.4-5.0); Alkaline Phosphatase 121 U/L (45-117); BUN Blood Urea Nitrogen 14 mg/dL (7-18); Bicarbonate 25 mmol/L (21-32); Bilirubin Direct < 0.1 mg/dL (0-0.2); Bilirubin Total 0.3 mg/dL (0.2-1.0); Glucose Level 136 mg/dL (74-106); Magnesium 2.2 mg/dL (1.8-2.4); NT PRO-BNP 185 pg/mL (<125); Potassium 3.5 mmol/L (3.5-5.1); Sodium Level 141 mmol/L (136-145); Troponin (Emerg Dept Use Only) < 0.02 ng/mL (0.0-0.045)
--- NOTE | 2021-04-24 14:10 | RAD REPORT ---
EXAM DESCRIPTION: RAD - Chest Single View - 04/24/2021 1:29 pm CLINICAL HISTORY: COUGH COMPARISON: April 07 TECHNIQUE: AP portable chest image was obtained 04/24/2021 1:29 pm . FINDINGS: No new mass, consolidation or failure finding. Interstitial pattern is prominent but uncha nged. Heart and vasculature are normal. No measurable pleural effusion and no pneumothorax. No acute bony abnormality seen. No acute aortic findings suspected. IMPRESSION: No acute cardiopulmonary process. Prominent interstitial pattern matches comparison.
--- NOTE | 2021-04-24 15:44 | ER ---
Nurse's Notes [facility] Name: Nicolás Griffin Age: 61 yrs Sex: Male : 1960 Arrival Date: 04/24/2021 Time: 12:47 Bed 3 Private MD: Diagnosis: Essential (primary) hypertension;Hypertensive heart disease without heart failure;Proteinuria, unspecified Presentation: 04/24 12:47 Chief complaint: EMS states: Called out for dizziness that began while eating at a restaurant. Pt reports he had a CVA 2 weeks ago and states that he was given a blood thinner. Initial BP was 243/137. EMS gave Lopressor 5 mg IV en route as well as Labetalol 20 mg and BP now on arrival to ED is 200/111. Pt's only complaint is dizziness. Coronavirus screen: Client denies travel out of the [place] in the last 14 days. Ebola Screen: Patient denies exposure to infectious person. Patient denies travel to an Ebola-affected area in the 21 days before illness onset. 12:47 Method Of Arrival: Ambulatory ss 13:00 Initial Sepsis Screen: Does the patient meet any 2 criteria? No. Patient's initial ap3 sepsis screen is negative. Does the patient have a suspected source of infection? No. Patient's initial sepsis screen is negative. Risk Assessment: Do you want to hurt yourself or someone else? Patient reports no desire to harm self or others. Onset of symptoms was April 24, 2021. Care prior to arrival: Medication(s) given: 5mg Metoprolol, 20mg labetalol IV initiated. 18 GA, in the left antecubital area. 13:00 Acuity: LALO 2 ap3 Triage Assessment: 13:01 General: Appears in no apparent distress. comfortable, Behavior is calm, cooperative, ap3 appropriate for age. Pain: Denies pain. Neuro: Level of Consciousness is awake, alert, obeys commands, Oriented to person, place, time, situation, Appropriate for age Moves all extremities. Speech is normal, Reports dizziness. Cardiovascular: Patient's skin is warm and dry. Respiratory: Airway is patent Respiratory effort is even, unlabored, Respiratory pattern is regular, symmetrical. Historical: - Allergies: 12:50 No Known Allergies; ss - PMHx: 12:50 Hypertensive disorder; CVA; ss - Immunization history:: Adult Immunizations unknown. - Family history:: not pertinent. - Social history:: Smoking status: Patient/guardian denies using tobacco. Screenin:59 Abuse screen: Denies threats or abuse. Nutritional screening: No deficits noted. ap3 Tuberculosis screening: No symptoms or risk factors identified. Fall Risk No fall in past 12 months (0 pts). Secondary diagnosis (15 points) CVA, IV access (20 points). Ambulatory Aid- None/Bed Rest/Nurse Assist (0 pts). Gait- Weak (10 pts.). Mental Status- Oriented to own ability (0 pts). Assessment: 15:04 Reassessment: Patient and/or family updated on plan of care and expected duration. Pain ap3 level reassessed. Patient is alert, oriented x 3, equal unlabored respirations, skin warm/dry/pink. Patient states feeling better. Patient states symptoms have improved. Vital Signs: 13:20 BP 156 / 92; Pulse 62; Resp 18; Pulse Ox 97% on R/A; Weight 88.45 kg; Height 5 ft. 11 ap3 in. (180.34 cm); 13:55 BP 183 / 90; Pulse 68; Resp 16; Pulse Ox 98% on R/A; ap3 15:01 BP 182 / 87; Pulse 58; Resp 17; Pulse Ox 97% on R/A; ap3 15:37 BP 173 / 95; Pulse 57; Resp 18; Pulse Ox 98% on R/A; ap3 13:20 Body Mass Index 27.20 (88.45 kg, 180.34 cm) ap3 ED Course: 12:47 Patient arrived in ED. ss 12:48 Shaw Girard MD is Attending Physician. rich 12:55 Ree Person, KELTON is Primary Nurse. ap3 13:01 Triage completed. ap3 13:02 Arm band placed on right wrist. ap3 13:02 Patient has correct armband on for positive identification. Bed in low position. Call ap3 light in reach. Side rails up X2. substation operator conversion on. Pulse ox on. NIBP on. Door closed. Noise minimized. Warm blanket given. 13:04 CT Head Brain wo Cont In Process Unspecified. EDMS 13:29 XRAY Chest (1 view) In Process Unspecified. EDMS 15:41 Josse Streeter MD is Referral Physician. [facility] 15:43 Eduin Franklin MD is Referral Physician. rich 15:58 No provider procedures requiring assistance completed. IV discontinued, intact, ap3 bleeding controlled, No redness/swelling at site. Pressure dressing applied. Administered Medications: 13:35 Drug: Norvasc (amlodipine) 10 mg Route: PO; ap3 15:59 Follow up: Response: No adverse reaction; Blood pressure is lowered ap3 Outcome: 15:43 Discharge ordered by . rich 15:58 Discharged to home via wheelchair. ap3 15:58 Condition: good 15:58 Discharge instructions given to patient, Instructed on discharge instructions, follow up and referral plans. medication usage, Demonstrated understanding of instructions, follow-up care, medications, Prescriptions given X 2. 16:09 Patient left the ED. ap3 Signatures: Dispatcher [employer] Shaw Mobley MD MD cha Smirch, Shelby, Ree Boucher RN, RN RN ap3
--- NOTE | 2021-04-24 15:44 | EDPHYS ---
Physician Documentation [facility] Name: Nicolás Griffin Age: 61 yrs Sex: Male : 1960 Arrival Date: 04/24/2021 Time: 12:47 Bed 3 Private MD: ED Physician Shaw Girard HPI: 04/24 15:35 This 61 yrs old Male presents to ER via Ambulatory with complaints of rich Dizziness, High Blood Pressure. 15:35 The patient presents with dizziness, feeling faint, generalized weakness. Onset: The rich symptoms/episode began/occurred just prior to arrival, today. Context: occurred at a restaurant, occurred while the patient was eating. Modifying factors: The symptoms are alleviated by nothing, the symptoms are aggravated by nothing. Associated signs and symptoms: Pertinent positives: weakness. Severity of symptoms: At their worst the symptoms were mild in the emergency department the symptoms are unchanged. Patient's baseline: Neuro: alert and fully oriented. The patient has not experienced similar symptoms in the past. Historical: - Allergies: 12:50 No Known Allergies; ss - PMHx: 12:50 Hypertensive disorder; CVA; ss - Immunization history:: Adult Immunizations unknown. - Family history:: not pertinent. - Social history:: Smoking status: Patient/guardian denies using tobacco. ROS: 15:35 Constitutional: Negative for fever, chills, and weight loss, Eyes: Negative for injury, rich pain, redness, and discharge, ENT: Negative for injury, pain, and discharge, Neck: Negative for injury, pain, and swelling, Cardiovascular: Negative for chest pain, palpitations, and edema, Respiratory: Negative for shortness of breath, cough, wheezing, and pleuritic chest pain, Abdomen/GI: Negative for abdominal pain, nausea, vomiting, diarrhea, and constipation, Back: Negative for injury and pain, : Negative for injury, bleeding, discharge, and swelling, MS/Extremity: Negative for injury and deformity, Skin: Negative for injury, rash, and discoloration, Psych: Negative for depression, anxiety, suicide ideation, homicidal ideation, and hallucinations, Allergy/Immunology: Negative for hives, rash, and allergies, Endocrine: Negative for neck swelling, polydipsia, polyuria, polyphagia, and marked weight changes, Hematologic/Lymphatic: Negative for swollen nodes, abnormal bleeding, and unusual bruising. 15:35 Neuro: Positive for dizziness, weakness. Exam: 15:35 Constitutional: This is a well developed, well nourished patient who is awake, alert, rich and in no acute distress. Head/Face: Normocephalic, atraumatic. Eyes: Pupils equal round and reactive to light, extra-ocular motions intact. Lids and lashes normal. Conjunctiva and sclera are non-icteric and not injected. Cornea within normal limits. Periorbital areas with no swelling, redness, or edema. ENT: Nares patent. No nasal discharge, no septal abnormalities noted. Tympanic membranes are normal and external auditory canals are clear. Oropharynx with no redness, swelling, or masses, exudates, or evidence of obstruction, uvula midline. Mucous membranes moist. Neck: Trachea midline, no thyromegaly or masses palpated, and no cervical lymphadenopathy. Supple, full range of motion without nuchal rigidity, or vertebral point tenderness. No Meningismus. Chest/axilla: Normal chest wall appearance and motion. Nontender with no deformity. No lesions are appreciated. Cardiovascular: Regular rate and rhythm with a normal S1 and S2. No gallops, murmurs, or rubs. Normal PMI, no JVD. No pulse deficits. Respiratory: Lungs have equal breath sounds bilaterally, clear to auscultation and percussion. No rales, rhonchi or wheezes noted. No increased work of breathing, no retractions or nasal flaring. Abdomen/GI: Soft, non-tender, with normal bowel sounds. No distension or tympany. No guarding or rebound. No evidence of tenderness throughout. Back: No spinal tenderness. No costovertebral tenderness. Full range of motion. Skin: Warm, dry with normal turgor. Normal color with no rashes, no lesions, and no evidence of cellulitis. MS/ Extremity: Pulses equal, no cyanosis. Neurovascular intact. Full, normal range of motion. Neuro: Awake and alert, GCS 15, oriented to person, place, time, and situation. Cranial nerves II-XII grossly intact. Motor strength 5/5 in all extremities. Sensory grossly intact. Cerebellar exam normal. Normal gait. Psych: Awake, alert, with orientation to person, place and time. Behavior, mood, and affect are within normal limits. 15:35 Neuro: Orientation: is normal, appropriate for stated age, no acute changes, Mentation: is normal, appropriate for stated age, no acute changes, Memory: is normal, appropriate for stated age, Cranial nerves: grossly normal, is grossly normal based on the patient's age, no acute changes, Cerebellar function: is grossly normal, is grossly normal based on the patient's age, no acute changes, Motor: is normal, is grossly normal based on the patient's age, no acute changes, moves all fours, strength is normal, Sensation: no obvious gross deficits, appropriate no acute changes, Gait: is steady, appropriate for age, seizure activity, is not displayed by the patient. 15:45 ECG was reviewed by the Attending Physician. [facility] Vital Signs: 13:20 BP 156 / 92; Pulse 62; Resp 18; Pulse Ox 97% on R/A; Weight 88.45 kg; Height 5 ft. 11 ap3 in. (180.34 cm); 13:55 BP 183 / 90; Pulse 68; Resp 16; Pulse Ox 98% on R/A; ap3 15:01 BP 182 / 87; Pulse 58; Resp 17; Pulse Ox 97% on R/A; ap3 15:37 BP 173 / 95; Pulse 57; Resp 18; Pulse Ox 98% on R/A; ap3 13:20 Body Mass Index 27.20 (88.45 kg, 180.34 cm) ap3 MDM: 12:48 Patient medically screened. rich 15:38 Differential diagnosis: cardiac arrhythmia, CVA, generalized weakness, hypovolemia, rich idiopathic dizziness, near-syncope. Data reviewed: vital signs, nurses notes, lab test result(s), EKG, radiologic studies, CT scan, plain films. Data interpreted: night monitor: rate is 57 beats/min, rhythm is regular, Pulse oximetry: on room air is 98 %. Test interpretation: by ED physician or midlevel provider: ECG, plain radiologic studies. Counseling: I had a detailed discussion with the patient and/or guardian regarding: the historical points, exam findings, and any diagnostic results supporting the discharge/admit diagnosis, lab results, radiology results, the need for outpatient follow up, for definitive care, a filer and sander, a family practitioner. 04/24 12:51 Order name: Basic Metabolic Panel [facility] 04/24 12:51 Order name: CBC with Diff; Complete Time: 15:14 [facility] 04/24 12:51 Order name: LFT's; Complete Time: 15:14 [facility] 04/24 12:51 Order name: Magnesium; Complete Time: 15:14 [facility] 04/24 12:51 Order name: NT PRO-BNP; Complete Time: 15:14 [facility] 04/24 12:51 Order name: PT-INR; Complete Time: 15:14 [facility] 04/24 12:51 Order name: Troponin (emerg Dept Use Only); Complete Time: 15:14 [facility] 04/24 12:51 Order name: XRAY Chest (1 view); Complete Time: 15:14 [facility] 04/24 12:51 Order name: EKG; Complete Time: 12:52 [facility] 04/24 12:51 Order name: Cardiac monitoring; Complete Time: 13:19 [facility] 04/24 12:51 Order name: CT Head Brain wo Cont; Complete Time: 13:22 [facility] 04/24 12:51 Order name: Basic Metabolic Panel; Complete Time: 15:14 EDMS 04/24 13:13 Order name: Urine Dipstick-Ancillary; Complete Time: 13:22 [facility] 04/24 12:51 Order name: EKG - Nurse/Tech; Complete Time: 13:35 [facility] 04/24 12:51 Order name: IV Saline Lock; Complete Time: 12:59 [facility] 04/24 12:51 Order name: Labs collected and sent; Complete Time: 13:41 [facility] 04/24 12:51 Order name: O2 Per Protocol; Complete Time: 12:59 [facility] 04/24 12:51 Order name: O2 Sat Monitoring; Complete Time: 12:59 [facility] 04/24 12:51 Order name: Urine Dipstick-Ancillary (obtain specimen); Complete Time: 13:19 [facility] EC:45 Rate is 60 beats/min. Rhythm is regular. QRS [place] is Normal. MO interval is normal. QRS rich interval is normal. QT interval is normal. No Q waves. T waves are Normal. No ST changes noted. Clinical impression: NSR w/ Non-specific ST/T Changes and No evidence of ischemia. Interpreted by me. Reviewed by me. Administered Medications: 13:35 Drug: Norvasc (amlodipine) 10 mg Route: PO; ap3 15:59 Follow up: Response: No adverse reaction; Blood pressure is lowered ap3 Disposition Summary: 04/24/21 15:43 Discharge Ordered Location: Home rich Problem: new rich Symptoms: have improved rich Condition: Stable rich Diagnosis - Essential (primary) hypertension rich - Hypertensive heart disease without heart failure rich - Proteinuria, unspecified rich Followup: rich - With: Josse Streeter MD - When: 2 - 3 days - Reason: Recheck today's complaints, Re-evaluation by your physician Followup: rich - With: Eduin Franklin MD - When: 2 - 3 days - Reason: Recheck today's complaints, Re-evaluation by your physician Discharge Instructions: - Discharge Summary Sheet rich - Hypertension, Adult rich - Proteinuria rich - Hypertension, Adult, [id number] rich - How to Take Your Blood Pressure, [id number] rich - Aspirin and Your Heart rich - Managing Your Hypertension rich - How to Take Your Blood Pressure rich - Preventing Hypertension rich Forms: - Medication Reconciliation Form rich - Thank You Letter rich - Antibiotic Education rich - Prescription Opioid Use rich Prescriptions: - Norvasc 10 mg Oral Tablet - take 1 tablet by ORAL route once daily; 30 tablet; Refills: 0, Product rich Selection Permitted - Lisinopril 20 mg Oral Tablet - take 1 tablet by ORAL route once daily; 20 tablet; Refills: 0, Product rich Selection Permitted Signatures: Dispatcher [employer] Shaw Mobley MD MD cha Smirch, Shelby, RN RN ss Prokisch, Amanda, RN RN ap3
[2021-04-24 16:18] VITALS: BP 173/95; O2SAT 98
--- NOTE | 2021-04-25 16:24 | EKG ---
Test Date: 2021-04-24 Test Time: 13:29:22 Administrative Dietitian: NATHALY MEASUREMENT RESULTS: Intervals: Rate: 60 CT: 148 QRSD: 86 QT: 456 QTc: 456 [place]: P: 26 CT: 148 QRS: 48 T: -3 INTERPRETIVE STATEMENTS: Normal sinus rhythm Septal infarct, age undetermined Abnormal ECG Compared to ECG 04/07/2021 15:01:53 No significant changes Electronically Signed On 04-25-21 16:22:11 COMMUNICATIONS DESIGNER by Eduin Franklin
== END 2021-04-24 16:09 | disposition home or self-care (01) ==
LOC: ER 12:27
DX: I11.9 Hypertensive heart disease without heart failure (principal); R80.9 Proteinuria, unspecified; Z86.73 Personal history of transient ischemic attack (TIA), and cerebral infarction without residual deficits
CPT/HCPCS: 36415; 70450; 71045; 80048; 80076; 81003; 83735; 83880; 84484; 85025; 85610; 93005; 99284

== ENCOUNTER 2021-05-26 23:42 | Observation (INO) | payer SELFPAY ==
[2021-05-27] MEDS ORDERED: ONDANSETRON 4 MG/2 ML VIAL ONE (00:26)
[2021-05-27] MEDS ORDERED: MORPHINE 4 MG/ML SYR ONE (00:26)
[2021-05-27] MEDS ORDERED: FAMOTIDINE 20 MG/2 ML VIAL IV ONE (00:26)
[2021-05-27 00:41] LABS: Protime INR 1.11
[2021-05-27 00:42] LABS: Absolute Lymphocytes (CBC) 2.3 K/uL (0.7-4.9); Hematocrit 43.9 % (39.6-49.0); Lymphocytes % 28.3 % (15.3-44.8); MPV 9.9 fL (7.6-11.3); RBC Red Blood Cell Count 4.59 M/uL (4.33-5.43)
[2021-05-27 00:55] LABS: ALT/SGPT 35 U/L (12-78); Albumin 3.4 g/dL (3.4-5.0); Alkaline Phosphatase 131 U/L (45-117); BUN Blood Urea Nitrogen 15 mg/dL (7-18); Bicarbonate 23 mmol/L (21-32); Bilirubin Direct < 0.1 mg/dL (0-0.2); Bilirubin Total 0.2 mg/dL (0.2-1.0); Glucose Level 99 mg/dL (74-106); Lipase 156 U/L (73-393); NT PRO-BNP 40 pg/mL (<125); Sodium Level 141 mmol/L (136-145); Troponin (Emerg Dept Use Only) < 0.02 ng/mL (0.0-0.045)
[2021-05-27 00:58] LABS: AST/SGOT 26 U/L (15-37); Magnesium 2.2 mg/dL (1.8-2.4); Potassium 3.7 mmol/L (3.5-5.1)
[2021-05-27 01:45] LABS: SARS-COV-2 RT PCR NEGATIVE (NEGATIVE)
[2021-05-27 01:47] LABS: Barbiturates NEGATIVE (NEGATIVE); Benzodiazepines NEGATIVE (NEGATIVE); Cocaine NEGATIVE (NEGATIVE); METHAMPHETAM NEGATIVE (NEGATIVE); Methadone NEGATIVE (NEGATIVE); Opiates NEGATIVE (NEGATIVE); Phencyclidine NEGATIVE (NEGATIVE); THC Cannibis NEGATIVE (NEGATIVE)
[2021-05-27] MEDS ORDERED: LORazepam 2 MG/ML VIAL ONE (02:07)
--- NOTE | 2021-05-27 04:55 | ER ---
Nurse's Notes [facility] Name: Nicol[facility] Griffin Age: 61 yrs Sex: Male : 1960 Arrival Date: 05/26/2021 Time: 23:46 Bed 2 Private MD: Diagnosis: Chest pain, unspecified;Upper abdominal pain, unspecified Presentation: 05/27 00:18 Chief complaint: EMS states: Called for patient with chest pain and shortness of lp1 breath; Per EMS, patient BP 200/100, hx of recent CVA. Coronavirus screen: At this time, the client does not indicate any symptoms associated with coronavirus-19. Ebola Screen: No symptoms or risks identified at this time. Initial Sepsis Screen: Does the patient meet any 2 criteria? No. Patient's initial sepsis screen is negative. Does the patient have a suspected source of infection? No. Patient's initial sepsis screen is negative. Risk Assessment: Do you want to hurt yourself or someone else? Patient reports no desire to harm self or others. Onset of symptoms was May 27, 2021. 00:18 Method Of Arrival: EMS: [facility] lp1 00:18 Acuity: LALO 2 lp1 00:21 Care prior to arrival: IV initiated. 18 GA, in the right antecubital area, Glucose lp1 check: 108. 00:22 Note Patient reports 8-10 beers tonight. lp1 Historical: - Allergies: 00:21 No Known Allergies; lp1 - PMHx: 00:21 CVA; Hypertensive disorder; lp1 - PSHx: 00:21 Back Surgery; lp1 - Immunization history:: Adult Immunizations up to date. - Social history:: Smoking status: Patient reports the use of cigarette tobacco products, smokes one pack cigarettes per day. Screenin:21 Abuse screen: Denies threats or abuse. Denies injuries from another. Nutritional lp1 screening: No deficits noted. Tuberculosis screening: No symptoms or risk factors identified. Fall Risk None identified. Assessment: 00:22 General: Appears in no apparent distress. Behavior is calm, cooperative. Pain: lp1 Complains of pain in chest and epigastric area Pain currently is 5 out of 10 on a pain scale. Quality of pain is described as pressure. Neuro: Level of Consciousness is awake, alert, obeys commands, Oriented to person, place, time, situation. Cardiovascular: Patient's skin is warm and dry. Respiratory: Respiratory effort is even, unlabored, Breath sounds are clear bilaterally. GI: Abdomen is non-distended. : No signs and/or symptoms were reported regarding the genitourinary system. EENT: No signs and/or symptoms were reported regarding the EENT system. Derm: Skin is intact, Skin is dry, Skin is normal. Musculoskeletal: No deficits noted. 01:40 Reassessment: Patient returned from CT, reports unable to lie still for exam, reports lp1 anxious, restless, "I think I need something to relax me, I get nervous ever since the MRI I had". 02:20 Reassessment: Provider verbal order to hold Nitro paste at this time. lp1 02:51 Reassessment: Patient appears in no apparent distress at this time. Patient is alert, lp1 oriented x 3, equal unlabored respirations, skin warm/dry/pink. Patient states feeling better. 05:00 Reassessment: Patient appears in no apparent distress at this time. Patient resting, lp1 eyes closed, respirations even, unlabored. 05:37 Reassessment: Hospitalist at bedside. lp1 Vital Signs: 00:18 BP 196 / 94; Pulse 81; Resp 15; Temp 98.2(O); Pulse Ox 98% on R/A; Weight 77.11 kg (R); lp1 Height 5 ft. 9 in. (175.26 cm); Pain 5/10; 00:58 BP 187 / 94; Pulse 74; Resp 15; Pulse Ox 94% on R/A; lp1 01:55 BP 173 / 87; Pulse 76; Resp 16; Pulse Ox 94% on R/A; lp1 02:20 BP 165 / 88; Pulse 79; Resp 16; Pulse Ox 95% on R/A; lp1 03:36 BP 152 / 83; Pulse 76; Resp 13; Pulse Ox 96% on R/A; lp1 04:00 BP 174 / 86; Pulse 88; Resp 14; Pulse Ox 94% on R/A; lp1 04:30 BP 150 / 95; Pulse 69; Resp 12; Pulse Ox 96% on R/A; lp1 05:00 BP 138 / 88; Pulse 63; Resp 12; Pulse Ox 96% on R/A; lp1 00:18 Body Mass Index 25.10 (77.11 kg, 175.26 cm) lp1 ED Course: 05/26 23:46 Patient arrived in ED. jr8 23:52 patients Mame [phone]. mw2 23:56 Talib Anaya MD is Attending Physician. 7 05/27 00:17 Rosario Kaiser, RN is Primary Nurse. lp1 00:18 XRAY Chest (1 view) Sent. lp1 00:18 Maintain EMS IV. Dressing intact. Good blood return noted. Site clean \\T\\ dry. Gauge \\T\\ lp 1 site: 18g to R AC. 00:21 Triage completed. lp1 00:21 Patient has correct armband on for positive identification. Placed in gown. Cardiac lp1 monitor on. Pulse ox on. NIBP on. 00:21 Arm band placed on left wrist. lp1 02:31 CT Chest For PE Angio In Process Unspecified. EDMS 02:31 CT Abd/Pelvis - IV Contrast Only In Process Unspecified. EDMS 02:56 No provider procedures requiring assistance completed. lp1 03:03 XRAY Chest (1 view) In Process Unspecified. EDMS 04:54 Raoul Harvey is Hospitalizing Provider. [facility] 05:28 Patient admitted, IV remains in place. lp1 Administered Medications: 00:27 Drug: morphine 4 mg Route: IVP; Site: right antecubital; lp1 02:12 Follow up: Response: Pain is decreased lp1 00:27 Drug: Zofran (Ondansetron) 4 mg Route: IVP; Site: right antecubital; lp1 02:12 Follow up: Response: No adverse reaction lp1 00:27 Drug: Pepcid (famotidine) 20 mg Route: IVP; Site: right antecubital; lp1 02:12 Follow up: Response: No adverse reaction lp1 02:12 Drug: Ativan (LORazepam) 1 mg {Note: Verbal order per Dr. Anaya for CT.} Route: IVP; lp1 Site: right antecubital; 02:40 Follow up: Response: No adverse reaction; Marked relief of symptoms lp1 05:22 Not Given (Hemodynamic Parameters): Nitro-Bid (nitroglycerin) Ointment 2 % 1 inches lp1 Transdermal once Outcome: 04:54 Decision to Hospitalize by Provider. mh7 05:28 Admitted to ER Hold. Please see [facility] for further documentation. lp1 05:28 Condition: stable 05:28 Instructed on the need for admit. 08:58 Patient left the ED. eb Signatures: Dispatcher [employer] EDMS Rosario Kaiser RN RN lp1 James Srivastava PA PA jr8 Dharmesh Anderson 2 Meredith Fuentes Maurice, MD MD 7
--- NOTE | 2021-05-27 04:56 | EDPHYS ---
Physician Documentation [facility] Name: Nicolás Griffin Age: 61 yrs Sex: Male : 1960 Arrival Date: 05/26/2021 Time: 23:46 Bed 2 Private MD: ED Physician Talib Anaya HPI: 05/27 00:15 This 61 yrs old Male presents to ER via Unassigned with complaints of Chest mh7 pain. 00:15 The patient or guardian reports chest pain that is located primarily in the epigastric mh7 area. Onset: just prior to arrival, today. The pain does not radiate. Associated signs and symptoms: Pertinent positives: abdominal pain, shortness of breath, Pertinent negatives: cough, diaphoresis, dizziness, headache, lower extremity pain, lower extremity swelling, lightheadedness, nausea, near syncope, palpitations, recent travel, syncope, vomiting. The chest pain is described as a pressure. Duration: The patient or guardian reports multiple episodes, that are intermittent, that wax and wane, with no pattern. Modifying factors: The symptoms are alleviated by nothing. the symptoms are aggravated by nothing. Severity of pain: At its worst the pain was moderate today, in the emergency department the pain has improved moderately. Historical: - Allergies: 00:21 No Known Allergies; lp1 - PMHx: 00:21 CVA; Hypertensive disorder; lp1 - PSHx: 00:21 Back Surgery; lp1 - Immunization history:: Adult Immunizations up to date. - Social history:: Smoking status: Patient reports the use of cigarette tobacco products, smokes one pack cigarettes per day. ROS: 00:15 Constitutional: Negative for fever, chills, and weight loss, Eyes: Negative for injury, mh7 pain, redness, and discharge, ENT: Negative for injury, pain, and discharge, Neck: Negative for injury, pain, and swelling, Back: Negative for injury and pain, : Negative for injury, bleeding, discharge, and swelling, MS/Extremity: Negative for injury and deformity, Skin: Negative for injury, rash, and discoloration, Neuro: Negative for headache, weakness, numbness, tingling, and seizure, Psych: Negative for depression, anxiety, suicide ideation, homicidal ideation, and hallucinations, Allergy/Immunology: Negative for hives, rash, and allergies, Endocrine: Negative for neck swelling, polydipsia, polyuria, polyphagia, and marked weight changes, Hematologic/Lymphatic: Negative for swollen nodes, abnormal bleeding, and unusual bruising. Exam: 00:15 Constitutional: This is a well developed, well nourished patient who is awake, alert, mh7 and in no acute distress. Head/Face: Normocephalic, atraumatic. Eyes: Pupils equal round and reactive to light, extra-ocular motions intact. Lids and lashes normal. Conjunctiva and sclera are non-icteric and not injected. Cornea within normal limits. Periorbital areas with no swelling, redness, or edema. Neck: Trachea midline, no thyromegaly or masses palpated, and no cervical lymphadenopathy. Supple, full range of motion without nuchal rigidity, or vertebral point tenderness. No Meningismus. Chest/axilla: Normal chest wall appearance and motion. Nontender with no deformity. No lesions are appreciated. Cardiovascular: Regular rate and rhythm with a normal S1 and S2. No gallops, murmurs, or rubs. Normal PMI, no JVD. No pulse deficits. Respiratory: Lungs have equal breath sounds bilaterally, clear to auscultation and percussion. No rales, rhonchi or wheezes noted. No increased work of breathing, no retractions or nasal flaring. 00:15 Back: No spinal tenderness. No costovertebral tenderness. Full range of motion. Skin: Warm, dry with normal turgor. Normal color with no rashes, no lesions, and no evidence of cellulitis. MS/ Extremity: Pulses equal, no cyanosis. Neurovascular intact. Full, normal range of motion. Neuro: Awake and alert, GCS 15, oriented to person, place, time, and situation. Cranial nerves II-XII grossly intact. Motor strength 5/5 in all extremities. Sensory grossly intact. Cerebellar exam normal. Normal gait. Psych: Awake, alert, with orientation to person, place and time. Behavior, mood, and affect are within normal limits. 00:15 Abdomen/GI: Inspection: obese Bowel sounds: normal, in all quadrants, Palpation: moderate abdominal tenderness, in the epigastric area and right upper quadrant, mass, is not appreciated, rebound tenderness, is not appreciated, voluntary guarding, is not appreciated, involuntary guarding, is not appreciated, no appreciated organomegaly, Rectal exam: the exam is deferred, because of patient request, Indicators: McBurney's point is not tender, Ribeiro's sign is negative, Rovsing's sign is negative, Obturator sign is negative, Psoas sign is negative, Liver: no appreciated palpable abnormalities, Hernia: not appreciated. Vital Signs: 00:18 BP 196 / 94; Pulse 81; Resp 15; Temp 98.2(O); Pulse Ox 98% on R/A; Weight 77.11 kg (R); lp1 Height 5 ft. 9 in. (175.26 cm); Pain 5/10; 00:58 BP 187 / 94; Pulse 74; Resp 15; Pulse Ox 94% on R/A; lp1 01:55 BP 173 / 87; Pulse 76; Resp 16; Pulse Ox 94% on R/A; lp1 02:20 BP 165 / 88; Pulse 79; Resp 16; Pulse Ox 95% on R/A; lp1 03:36 BP 152 / 83; Pulse 76; Resp 13; Pulse Ox 96% on R/A; lp1 04:00 BP 174 / 86; Pulse 88; Resp 14; Pulse Ox 94% on R/A; lp1 04:30 BP 150 / 95; Pulse 69; Resp 12; Pulse Ox 96% on R/A; lp1 05:00 BP 138 / 88; Pulse 63; Resp 12; Pulse Ox 96% on R/A; lp1 00:18 Body Mass Index 25.10 (77.11 kg, 175.26 cm) lp1 MDM: 04:51 Differential diagnosis: abnormal EKG, acute myocardial infarction, acute pericarditis, mh7 anxiety, coronary artery disease chest wall pain, congestive heart failure cholecystitis, Cholelithiasis costochondritis, esophagitis, gastritis, gastroesophageal reflux disease (GERD), pericarditis, pleurisy, pneumonia, pulmonary embolus, stable angina, thoracic aortic disection, unstable angina. HEART Score: History: Moderately Suspicious (1), ECG: Non specific repolarization disturbance / LBTB / PM (1), Age: > 45 and < 65 years (1), Risk Factors: 1 or 2 risk factors (1), [Hypertension] Troponin: < or = 1 x Normal Limit (0), Total Score = 4. Data reviewed: vital signs, nurses notes, EMS record, old medical records, lab test result(s), cardiac enzymes, CBC, electrolytes, EKG, radiologic studies, CT scan, plain films. Data interpreted: Pulse oximetry: on room air is 96 %. Interpretation: normal. Counseling: I had a detailed discussion with the patient and/or guardian regarding: the historical points, exam findings, and any diagnostic results supporting the discharge/admit diagnosis, the presence of at least one elevated blood pressure reading (>120/80) during this emergency department visit, lab results, radiology results, the need for further work-up and treatment in the hospital. Response to treatment: the patient's symptoms have markedly improved after treatment. 04:54 Patient medically screened. [facility] 05/27 00:07 Order name: Basic Metabolic Panel; Complete Time: 01: [facility] 05/27 00:07 Order name: CBC with Diff; Complete Time: 01: [facility] 05/27 00:07 Order name: LFT's; Complete Time: 01: [facility] 05/27 00:07 Order name: Magnesium; Complete Time: 01: [facility] 05/27 00:07 Order name: NT PRO-BNP; Complete Time: 01:09 05/27 00:07 Order name: PT-INR; Complete Time: 01: [facility] 05/27 00:07 Order name: Troponin (emerg Dept Use Only); Complete Time: :09 05/27 00:07 Order name: Lipase; Complete Time: 01:09 05/27 00:07 Order name: ETOH Level; Complete Time: 01:09 [facility] 05/27 00:08 Order name: UDS; Complete Time: 02:07 [facility] 05/27 00:09 Order name: COVID-19/FLU A+B (Document "Date of Onset" if Symptomatic); Complete Time: [facility] 02:05/27 07:37 Order name: Troponin I [facility] 05/27 07:37 Order name: T4 Free EDMS 05/27 07:37 Order name: Thyroid Stimulating Hormone MS 05/27 00:07 Order name: XRAY Chest (1 view) [facility] 05/27 00:07 Order name: EKG; Complete Time: 00:09 [facility] 05/27 00:07 Order name: Cardiac monitoring; Complete Time: 00:18 [facility] 05/27 00:07 Order name: EKG - Nurse/Tech; Complete Time: 00:18 [facility] 05/27 00:07 Order name: IV Saline Lock; Complete Time: 00:18 [facility] 05/27 00:07 Order name: Labs collected and sent; Complete Time: 00:18 [facility] 05/27 00:07 Order name: O2 Per Protocol; Complete Time: 00:18 [facility] 05/27 00:07 Order name: O2 Sat Monitoring; Complete Time: 00:18 [facility] 05/27 01:10 Order name: CT Chest For PE Angio [facility] 05/27 01:10 Order name: CT Abd/Pelvis - IV Contrast Only [facility] 05/27 04:50 Order name: CONS Physician Consult [facility] 05/27 00:07 Order name: Urine Dipstick-Ancillary (obtain specimen); Complete Time: 02:34 Administered Medications: 00:27 Drug: morphine 4 mg Route: IVP; Site: right antecubital; lp1 02:12 Follow up: Response: Pain is decreased lp1 00:27 Drug: Zofran (Ondansetron) 4 mg Route: IVP; Site: right antecubital; lp1 02:12 Follow up: Response: No adverse reaction lp1 00:27 Drug: Pepcid (famotidine) 20 mg Route: IVP; Site: right antecubital; lp1 02:12 Follow up: Response: No adverse reaction lp1 02:12 Drug: Ativan (LORazepam) 1 mg {Note: Verbal order per Dr. Anaya for CT.} Route: IVP; lp1 Site: right antecubital; 02:40 Follow up: Response: No adverse reaction; Marked relief of symptoms lp1 05:22 Not Given (Hemodynamic Parameters): Nitro-Bid (nitroglycerin) Ointment 2 % 1 inches lp1 Transdermal once Disposition Summary: 05/27/21 04:54 Hospitalization Ordered Hospitalization Status: Observation [facility] Provider: Raoul Harvey Condition: Stable [facility] Problem: new 7 Symptoms: have improved mh7 Bed/Room Type: Standard [facility] Location: Telemetry/MedSurg (observation)(05/27/21 08:08) dw Room Assignment: [facility](05/27/21 08:31) dw Diagnosis - Chest pain, unspecified mh7 - Upper abdominal pain, unspecified mh7 Forms: - Medication Reconciliation Form 7 - SBAR form [facility] Signatures: Dispatcher [employer] EDKim Wharton RN RN mw Woody, Diana, RN RN dw Pena, Laura, RN RN lp1 Talib Anaya MD MD 7 Corrections: (The following items were deleted from the chart) 05:09 04:54 Telemetry/MedSurg (observation) [facility] 05:09 04:54 [facility] 08:08 05:09 [facility] ER HOLD mw dw 08:08 05:09 ERHOLD- mw dw 08:31 08:08 210 dw dw
--- NOTE | 2021-05-27 05:46 | P.HP ---
Certification for Inpatient Patient admitted to: Observation With expected LOS: <2 Midnights Patient will require the following post-hospital care: None Practitioner: I am a practitioner with admitting privileges, knowledge of patient current condition, hospital course, and medical plan of care. Services: Services provided to patient in accordance with Admission requirements found in Title 42 Section 412.3 of the Code of Federal Regulations Patient History Date of Service: 05/27/21 Reason for admission: chest pain History of Present Illness: Mr. Griffin is a 61 yo M with HTN, CVA history who presents with sternal chest pressure beginning today while he was moving boxes. He says he could not catch his breath. Reports shaking and dizziness. Denies nausea and vomiting. At bedside, he is pain free. Initial troponin negative. He was seen last year for a subacute CVA and scheduled to follow up with neurology for a possible four- vessel angiogram, but he has not yet followed up. Allergies No Known Allergies Allergy (Verified 04/08/21 00:21) Home Medications: Aspirin [Aspirin EC] 81 mg PO DAILY 30 Days #30 tablet. 04/09/21 Atorvastatin Calcium [Lipitor] 40 mg PO BEDTIME 30 Days #30 tab 04/09/21 Clopidogrel Bisulfate [Plavix*] 75 mg PO DAILY 30 Days #30 tablet 04/09/21 Folic Acid 1 mg PO DAILY 30 Days #30 tablet 04/09/21 Lisinopril [Zestril] 20 mg PO SEECOM 30 Days #60 tablet 04/09/21 - Past Medical/Surgical History Diabetic: No -: Hypertension -: CVA Past Surgical History: Patient denies surgical history - Family History Father -: Heart disease Brother -: Heart disease - Social History Smoking Status: Unknown if ever smoked Alcohol use: Yes CD- Drugs: No Place of Residence: Home Review of Systems 10-point ROS is otherwise unremarkable General: Unremarkable Eyes: Unremarkable ENT: Unremarkable Respiratory: Shortness of Breath Cardiovascular: Chest Pain, Light Headedness Gastrointestinal: Unremarkable Genitourinary: Unremarkable Musculoskeletal: Unremarkable Integumentary: Unremarkable Neurological: Unremarkable Lymphatics: Unremarkable Physical Examination - Physical Exam General: Alert, In no apparent distress HEENT: Atraumatic, PERRLA, Mucous membr. moist/pink, EOMI, Sclerae nonicteric Neck: Supple, 2+ carotid pulse no bruit, No LAD, Without JVD or thyroid abnormality Respiratory: Clear to auscultation bilaterally, Normal air movement Cardiovascular: Regular rate/rhythm, Normal S1 S2 Gastrointestinal: Normal bowel sounds, No tenderness Musculoskeletal: No tenderness Integumentary: No rashes Neurological: Normal gait, Normal speech, Normal strength at 5/5 x4 extr, Normal tone, Normal affect Lymphatics: No axilla or inguinal lymphadenopathy - Studies Laboratory Data (last 24 hrs) 05/27/21 00:10: PT 12.8 H, INR 1.11 05/27/21 00:10: WBC 8.00, Hgb 14.8, Hct 43.9, Plt Count 164 05/27/21 00:10: Sodium 141, Potassium 3.7, BUN 15, Creatinine 1.10, Glucose 99, Magnesium 2.2, Total Bilirubin 0.2, AST 26, ALT 35, Alkaline Phosphatase 131 H, Lipase 156 Assessment and Plan - Problems (Diagnosis) (1) Chest pain Current Visit: Yes Status: Acute Qualifiers: Chest pain type: unspecified Qualified Code(s): R07.9 - Chest pain, unspecified (2) HTN (hypertension) Current Visit: Yes Status: Chronic Qualifiers: Hypertension type: primary hypertension Qualified Code(s): I10 - Essential (primary) hypertension (3) History of CVA (cerebrovascular accident) Current Visit: Yes Status: Chronic - Plan cardiology consulted trend troponins, repeat EKG daily ASA, metoprolol, atorvastatin PRN morphine and nitroglycerin lipid and thyroid panel pending reconcile and continue home medications DVT ppx Discharge Plan: Home Plan to discharge in: 24 Hours - Advance Directives Does patient have a Living Will: No Does patient have a Durable POA for Healthcare: No - Code Status/Comfort Care Code Status Assessed: Yes (full code ) Critical Care: No Time Spent Managing Pts Care (In Minutes): 70
[2021-05-27] MEDS ORDERED: MORPHINE 2 MG/ML SYR IV PRN (05:53)
[2021-05-27] MEDS ORDERED: NITROGLYCERIN 0.4 MG/TAB SL PRN (05:53)
[2021-05-27] MEDS ORDERED: ACETAMINOPHEN 500 MG TAB PO PRN (05:53)
[2021-05-27] MEDS ORDERED: ONDANSETRON 4 MG/2 ML VIAL IV PRN (05:53)
[2021-05-27] MEDS ORDERED: METOPROLOL TAR 25 MG TAB PO SCH (06:00)
[2021-05-27] MEDS ORDERED: METOPROLOL TAR 25 MG TAB ONE (06:04)
--- NOTE | 2021-05-27 07:35 | RAD REPORT ---
EXAM DESCRIPTION: RAD - Chest Single View - 05/27/2021 3:03 am CLINICAL HISTORY: Chest pain;SOB COMPARISON: Chest Single View dated 04/24/2021; Chest Single View dated 04/07/2021 FINDINGS: Lines: None. Lungs: No evidence of edema or pneumonia. Pleural: No significant pleural effusions or pneumothorax. Cardiac: The heart size is within normal limits. Bones: No acute fractures. Other: IMPRESSION: No acute cardiopulmonary disease.
[2021-05-27 07:37] LABS: Troponin I < 0.02 ng/mL (0.0-0.045)
[2021-05-27] MEDS ORDERED: FOLIC ACID 1 MG TABLET PO SCH (09:00)
[2021-05-27] MEDS ORDERED: ASPIRIN EC 81 MG TAB PO SCH (09:00)
[2021-05-27] MEDS ORDERED: ENOXAPARIN 40 MG/0.4 ML SQ SCH (09:00)
[2021-05-27] MEDS ORDERED: CLOPIDOGREL 75 MG TABLET PO SCH (09:00)
[2021-05-27 09:17] VITALS: O2SAT 96
[2021-05-27 12:52] VITALS: BP 173/85; TEMP 98
--- NOTE | 2021-05-27 13:42 | P.DS ---
Admission Date: 05/27/21 Discharge Date: 05/27/21 Disposition: ROUTINE DISCHARGE Discharge Condition: FAIR Reason for Admission: chest pain - Problems (1) Chest pain Current Visit: Yes Status: Acute Qualifiers: Chest pain type: unspecified Qualified Code(s): R07.9 - Chest pain, unspecified (2) HTN (hypertension) Current Visit: Yes Status: Chronic Qualifiers: Hypertension type: primary hypertension Qualified Code(s): I10 - Essential (primary) hypertension (3) History of CVA (cerebrovascular accident) Current Visit: Yes Status: Chronic Brief History of Present Illness: Mr. Griffin is a 61 yo M with HTN, CVA history who presents with sternal chest pressure occuring while he was moving boxes. Symptoms associated with shortness of breath. He reported shaking and dizziness. Patient stated dizziness is chronic and have had it since his stroke diagnosis. Patient was chest pain-free during examination in the ED. Initial troponin negative. He was seen last year for a subacute CVA and scheduled to follow up with neurology for a possible four-vessel angiogram, but he has not yet followed up. Chest x-ray unremarkable, EKG shows no ischemic changes. Patient hospitalized for ACS rule out. Hospital Course: Patient placed under observation on the medical floor. Troponin trended negative. Patient was chest pain-free throughout her hospital stay. ACS ruled out. Patient may benefit from outpatient stress test. He is referred to Dr. Franklin for an outpatient stress test. He already takes aspirin and Plavix which was continued during the hospital stay and on discharge. Vital Signs/Physical Exam: Temp Pulse Resp BP Pulse Ox 98 F 50 19 173/85 H 99 05/27/21 12:00 05/27/21 12:00 05/27/21 12:00 05/27/21 12:05/27/21 12:00 General: Alert, In no apparent distress, Oriented x3 HEENT: Mucous membr. moist/pink Neck: JVD not distended Respiratory: Clear to auscultation bilaterally, Normal air movement Cardiovascular: No edema, Regular rate/rhythm, Normal S1 S2 Gastrointestinal: Soft and benign, Non-distended, No tenderness Musculoskeletal: No swelling Integumentary: No rashes Neurological: Normal strength at 5/5 x4 extr Laboratory Data at Discharge: WBC 8.00 K/uL (4.3-10.9) 05/27/21 00:10 Hgb 14.8 g/dL (13.6-17.9) 05/27/21 00:10 Hct 43.9 % (39.6-49.0) 05/27/21 00:10 Plt Count 164 K/uL (152-406) 05/27/21 00:10 PT 12.8 SECONDS (9.5-12.5) H 05/27/21 00:10 INR 1.11 05/27/21 00:10 Sodium 141 mmol/L (136-145) 05/27/21 00:10 Potassium 3.7 mmol/L (3.5-5.1) 05/27/21 00:10 BUN 15 mg/dL (7-18) 05/27/21 00:10 Creatinine 1.10 mg/dL (0.55-1.3) 05/27/21 00:10 Glucose 99 mg/dL (74-106) 05/27/21 00:10 Magnesium 2.2 mg/dL (1.8-2.4) 05/27/21 00:10 Total Bilirubin 0.2 mg/dL (0.2-1.0) 05/27/21 00:10 AST 26 U/L (15-37) 05/27/21 00:10 ALT 35 U/L (12-78) 05/27/21 00:10 Alkaline Phosphatase 131 U/L (45-117) H 05/27/21 00:10 Troponin I < 0.02 ng/mL (0.0-0.045) 05/27/21 10:00 Lipase 156 U/L (73-393) 05/27/21 00:10 Home Medications: Aspirin [Aspirin EC] 81 mg PO DAILY 30 Days #30 tablet. 04/09/21 Atorvastatin Calcium [Lipitor] 40 mg PO BEDTIME 30 Days #30 tab 04/09/21 Clopidogrel Bisulfate [Plavix*] 75 mg PO DAILY 30 Days #30 tablet 04/09/21 Folic Acid 1 mg PO DAILY 30 Days #30 tablet 04/09/21 Lisinopril [Zestril] 20 mg PO SEECOM 30 Days #60 tablet 04/09/21 Diet: [facility] Activity: Ad prakash Followup: Eduin Franklin MD [ACTIVE - CAN ADMIT] - 1 Week (Chest pain. Significant CAD risk factors. H/o CVA. For outpatient stress test.) NONE,NONE [Primary Care Provider] - 1-2 Weeks
--- NOTE | 2021-05-27 19:42 | RAD REPORT ---
EXAM DESCRIPTION: CT - Chest For Pe Angio - 05/27/2021 7:00 am CLINICAL HISTORY: Chest pain; SOB TECHNIQUE: Axial computed tomographic angiography images of the chest with intravenous contrast. S agittal and coronal reformatted images were created and reviewed. This CT exam was performed using one or more of the following dose reduction techniques: automated exposure control, adjustment of t he mA and/or kV according to patient size, and/or use of iterative reconstruction technique. MIP reconstructed images were created and reviewed. COMPARISON: No relevant prior studies available. FINDINGS: Artifacts: Motion artifact degrades image quality and limits evaluation of segmental and subsegmental vessels. Pulmonary arteries: No central or proximal segmental pulmonary arterial filling defects. Aorta: Mild atherosclerotic disease. No thoracic aortic aneurysm. Lungs: Minimal bibasilar subsegmental atelectasis/pleural parenchymal scar. No mass. Pleural space: Unremarkable. No significant effusion. No pneumothorax. Heart: The heart is mildly enlarged. Coronary artery calcification. No significant pericardial ef fusion. No evidence of RV dysfunction. Thyroid: 5 mm calcification within the left lobe of the thyroid. Bones/joints: Multilevel spondylosis. Bilateral lower thoracic Ratliff rods. Contiguous flowing ossification anteriorly involving multiple consecutive vertebral bodies which can be seen in the sett ing of DISH. Remote right anterior 6th through 8th rib fractures. No dislocation. Soft tissues: Unremarkable. Lymph nodes: Unremarkable. No enlarged lymph nodes. * A single impression for all exams can be found at the end of this report EXAM DESCRIPTION: CT Abdomen and Pelvis With Intravenous Contrast CLINICAL HISTORY: Abdominal pain TECHNIQUE: Axial computed tomography images of the abdomen and pelvis with intravenous contrast. S agittal and coronal reformatted images were created and reviewed. This CT exam was performed using one or more of the following dose reduction techniques: automated exposure control, adjustment of t he mA and/or kV according to patient size, and/or use of iterative reconstruction technique. COMPARISON: No relevant prior studies available. FINDINGS: ABDOMEN: Liver: The liver is enlarged and mildly diffusely low in density compatible with steatosis. Gallbladder and bile ducts: Unremarkable. No calcified stones. No ductal dilation. Pancreas: Unremarkable. No mass. No ductal dilation. Spleen: Unremarkable. No splenomegaly. Adrenals: Unremarkable. No mass. Kidneys and ureters: Unremarkable. No solid mass. No hydronephrosis. Stomach and bowel: Unremarkable. No obstruction. No mucosal thickening. PELVIS: Appendix: Normal caliber appendix. No findings to suggest acute appendicitis. Bladder: The urinary bladder is distended. Reproductive: The prostate is mildly enlarged. ABDOMEN and PELVIS: Intraperitoneal space: Unremarkable. No free air. No significant fluid collection. Bones/joints: Multilevel spondylosis. Bilateral posterior Ratliff rods extending from T10 throug h L4. No acute fracture. No dislocation. Soft tissues: Small fat-containing umbilical hernia. Vasculature: Mild to moderate atherosclerotic disease. No abdominal aortic aneurysm. Lymph nodes: Unremarkable. No enlarged lymph nodes. * A single impression for all exams can be found at the end of this report IMPRESSION: CT Angiography Chest With Intravenous Contrast: 1. Motion artifact degrades image quality and limits evaluation of segmental and subsegmental vesse ls. No central or proximal segmental pulmonary embolic disease. 2. 5 mm calcification within the left lobe of thyroid. No follow-up imaging is recommended. Referen ce: J Am Kasey Radiol. 2015 Jun;12(2): 143-50 3. Other findings as above. CT Abdomen and Pelvis With Intravenous Contrast: 1. No acute abnormality identified within the abdomen and pelvis. 2. Other findings as above. Electronically signed by: Krystyna Simental MD 05/27/2021 4:00 AM FILLING AND PACKING SUPERVISOR Due to temporary technical issues with the PACS/Fluency reporting system, reports are being signed by the in house radiologists without review as a courtesy to insure prompt reporting. The interpreting radiologist is fully responsible for the content of the report.
--- NOTE | 2021-05-27 19:59 | RAD REPORT ---
EXAM DESCRIPTION: CT - Abdomen Pelvis W Contrast - 05/27/2021 6:59 am CLINICAL HISTORY: Chest pain; SOB TECHNIQUE: Axial computed tomographic angiography images of the chest with intravenous contrast. S agittal and coronal reformatted images were created and reviewed. This CT exam was performed using one or more of the following dose reduction techniques: automated exposure control, adjustment of t he mA and/or kV according to patient size, and/or use of iterative reconstruction technique. MIP reconstructed images were created and reviewed. COMPARISON: No relevant prior studies available. FINDINGS: Artifacts: Motion artifact degrades image quality and limits evaluation of segmental and subsegmental vessels. Pulmonary arteries: No central or proximal segmental pulmonary arterial filling defects. Aorta: Mild atherosclerotic disease. No thoracic aortic aneurysm. Lungs: Minimal bibasilar subsegmental atelectasis/pleural parenchymal scar. No mass. Pleural space: Unremarkable. No significant effusion. No pneumothorax. Heart: The heart is mildly enlarged. Coronary artery calcification. No significant pericardial ef fusion. No evidence of RV dysfunction. Thyroid: 5 mm calcification within the left lobe of the thyroid. Bones/joints: Multilevel spondylosis. Bilateral lower thoracic Ratliff rods. Contiguous flowing ossification anteriorly involving multiple consecutive vertebral bodies which can be seen in the sett ing of DISH. Remote right anterior 6th through 8th rib fractures. No dislocation. Soft tissues: Unremarkable. Lymph nodes: Unremarkable. No enlarged lymph nodes. * A single impression for all exams can be found at the end of this report EXAM DESCRIPTION: CT Abdomen and Pelvis With Intravenous Contrast CLINICAL HISTORY: Abdominal pain TECHNIQUE: Axial computed tomography images of the abdomen and pelvis with intravenous contrast. S agittal and coronal reformatted images were created and reviewed. This CT exam was performed using one or more of the following dose reduction techniques: automated exposure control, adjustment of t he mA and/or kV according to patient size, and/or use of iterative reconstruction technique. COMPARISON: No relevant prior studies available. FINDINGS: ABDOMEN: Liver: The liver is enlarged and mildly diffusely low in density compatible with steatosis. Gallbladder and bile ducts: Unremarkable. No calcified stones. No ductal dilation. Pancreas: Unremarkable. No mass. No ductal dilation. Spleen: Unremarkable. No splenomegaly. Adrenals: Unremarkable. No mass. Kidneys and ureters: Unremarkable. No solid mass. No hydronephrosis. Stomach and bowel: Unremarkable. No obstruction. No mucosal thickening. PELVIS: Appendix: Normal caliber appendix. No findings to suggest acute appendicitis. Bladder: The urinary bladder is distended. Reproductive: The prostate is mildly enlarged. ABDOMEN and PELVIS: Intraperitoneal space: Unremarkable. No free air. No significant fluid collection. Bones/joints: Multilevel spondylosis. Bilateral posterior Ratliff rods extending from T10 throug h L4. No acute fracture. No dislocation. Soft tissues: Small fat-containing umbilical hernia. Vasculature: Mild to moderate atherosclerotic disease. No abdominal aortic aneurysm. Lymph nodes: Unremarkable. No enlarged lymph nodes. * A single impression for all exams can be found at the end of this report IMPRESSION: CT Angiography Chest With Intravenous Contrast: 1. Motion artifact degrades image quality and limits evaluation of segmental and subsegmental vesse ls. No central or proximal segmental pulmonary embolic disease. 2. 5 mm calcification within the left lobe of thyroid. No follow-up imaging is recommended. Referen ce: J Am Kasey Radiol. 2015 Jun;12(2): 143-50 3. Other findings as above. CT Abdomen and Pelvis With Intravenous Contrast: 1. No acute abnormality identified within the abdomen and pelvis. 2. Other findings as above. Electronically signed by: Krystyna Simental MD 05/27/2021 4:00 AM APRON OPERATOR Due to temporary technical issues with the PACS/Fluency reporting system, reports are being signed by the in house radiologists without review as a courtesy to insure prompt reporting. The interpreting radiologist is fully responsible for the content of the report.
[2021-05-27] MEDS ORDERED: ATORVASTATIN 40 MG TAB PO SCH (21:00)
--- NOTE | 2021-05-27 22:09 | CON ---
Date of Consultation: 05/27/2021 Reason For Consultation: Chest pain. History Of Present Illness: 61-year-old male with no prior cardiac history, however, there is histor y of coronary artery disease in his family. His brother had his heart attack at the age of 50. The patient himself has history of dyslipidemia, hypertension, and CVA. He started having chest pain on exertion that gets better with rest, so he presented for evaluation. Since hospitalization, he had n o further chest pain. Pain is retrosternal; no radiation; no diaphoresis, nausea, or vomiting, but h e has shortness of breath with it as well. Currently, he is pain-free and no symptoms. Past Medical History: Hypertension and CVA. Medications: Refer reconciliation sheet for detailed list. Allergies: NO KNOWN DRUG ALLERGIES. Family History: Brother with coronary artery disease and heart attack at age 50. Social History: He is an ex-smoker, quit few months back. Does not drink or use any drugs. Review of Systems: All systems reviewed and they were negative except as mentioned in HPI. Physical Examination: Vital Signs: Reviewed. Temperature is 98, pulse is 50, breathing 19, blood pressure is 173/85, satu rating 99% on room air. General: Pleasant, middle-aged male, no distress. Head and Neck: Pupils are equal and reactive to light. Intact eye movements. No JVD. No cervical lymphadenopathy. Neck: Supple. Thyroid is not enlarged. Lungs: Clear to auscultation bilaterally. No rhonchi, rales, or crackles. No accessory muscle use. Heart: Regular rate and rhythm. No extra sounds. Abdomen: Soft and nontender. Bowel sounds positive. No organomegaly. No masses or hernia. No rig idity or rebound. Extremities: No edema, clubbing, or cyanosis. Intact pulses. Skin: No rash was noted. Neurologic: Alert, awake, and oriented x3. No acute focal deficits appreciated. Investigations: EKG without acute specific abnormalities. White blood cell count is 8, hemoglobin i s 14.8. Troponin x3 were negative. Assessment And Recommendation: 1.Chest pain. Cardiac enzymes are negative. The patient has been chest pain-free. From cardiology standpoint, the patient can be discharged. I will arrange for him to have an echocardiogram and exe rcise stress test as an outpatient. 2.Hypertension, uncontrolled blood pressure. Add Norvasc 5 mg daily and adjust as needed for better blood pressure control. SR/MODL Voice ID: [id number] Report ID: [id number]
== END 2021-05-27 17:32 | disposition home or self-care (01) ==
LOC: ER 23:42 → ERHOLD 05-27 04:59 → 2ND 05-27 08:36 → UNDODISOB 05-27 17:06
PROVIDERS: ADMIT Internal Medicine; ATTEND Internal Medicine
DX: R07.9 Chest pain, unspecified (principal); I10 Essential (primary) hypertension; E78.5 Hyperlipidemia, unspecified; R10.10 Upper abdominal pain, unspecified; Z86.73 Personal history of transient ischemic attack (TIA), and cerebral infarction without residual deficits; Z87.891 Personal history of nicotine dependence; Z79.82 Long term (current) use of aspirin; Z79.02 Long term (current) use of antithrombotics/antiplatelets; Z20.822 Contact with and (suspected) exposure to COVID-19; Z82.49 Family history of ischemic heart disease and other diseases of the circulatory system
CPT/HCPCS: 0240U; 36415; 71045; 71275; 74177; 80048; 80076; 80307; 80320; 83690; 83735; 83880; 84439; 84443; 84484; 85025; 85610; 93005; 96374; 96375; 99285; G0378; J1650; J2270; J2405; Q9967